=== PATIENT | female | born 1995 | race Caucasian/White ===

== ENCOUNTER 2018-06-19 20:32 | Day surgery (SDC) | payer OTHER, MEDICAID ==
[~2018-06-19] VITALS: Ht 160 cm; Wt 51.0 kg
[~2018-06-19 20:32] MED LIST: CYCL10TA9 PO; FAMO20TA5 PO; NAPR-243 PO; ONDA8TAB13 PO; POLY119P PO; SCR1T PO
--- OUTSIDE RECORDS SUMMARY | 2018-06-19 20:51 | XMS REPORT ---
Author Author GABRIELA MARTINEZ Organization [facility] Address [address] [place] [address] Care Team Providers Care Associate Professor Of Literacy Name Role Phone GABRIELA MARTINEZ Unavailable PROBLEMS Type Condition ICD9-CM Code [id number] Code Onset Dates Condition Status SNOMED Code Problem Depressive disorder F32.9 Active 91348117 Problem Panic disorder [episodic paroxysmal anxiety] F41.0 Active [id number] ALLERGIES No Information ENCOUNTERS Encounter Location Date Diagnosis [facility] [id number] [address] Jun, [facility] [id number] [place] [phone] May, Depressive disorder F32.9 [facility] [address] [address] Apr, Depressive disorder F32.9 and Panic disorder [episodic paroxysmal anxiety] F41.0 IMMUNIZATIONS No Known Immunizations SOCIAL HISTORY Never Assessed REASON FOR VISIT Refill Request PLAN OF CARE VITAL SIGNS MEDICATIONS Medication Instructions Dosage Frequency Start Date End Date Duration Status Sertraline HCl 100 mg Orally at bedtime 1 tablet 90 days Active RESULTS No Results PROCEDURES No Known procedures INSTRUCTIONS MEDICATIONS ADMINISTERED No Known Medications MEDICAL (GENERAL) HISTORY Type Description Date Medical History panic attacks Medical History anxiety Medical History depression Medical History alcohol syndrome Surgical History spinal surgery for scoliosis 2009 Surgical History tonsillectomy Surgical History eye surgery ( bilaterally) Hospitalization History surgery
--- OUTSIDE RECORDS SUMMARY | 2018-06-19 20:51 | XMS REPORT ---
Author Author GABRIELA MARTINEZ Organization [facility] Address [address] [place] [address] Care Team Providers Care Closed Circuit Screen Watcher Name Role Phone GABRIELA MARTINEZ Unavailable PROBLEMS Type Condition ICD9-CM Code [id number] Code Onset Dates Condition Status SNOMED Code Problem Depressive disorder F32.9 Active 53120415 Problem Panic disorder [episodic paroxysmal anxiety] F41.0 Active [id number] ALLERGIES No Known Allergies ENCOUNTERS Encounter Location Date Diagnosis [facility] [id number] [address] Jun, [facility] [id number] [place] [phone] Apr, Depressive disorder F32.9 and Panic disorder [episodic paroxysmal anxiety] F41.0 IMMUNIZATIONS No Known Immunizations SOCIAL HISTORY Never Assessed REASON FOR VISIT Establish Care/ discuss ivana Cho MA PLAN OF CARE Activity Details Follow Up 4 Weeks Reason:depression VITAL SIGNS Height 63.5 in 2018-05-11 Weight 107.7 lbs 2018-05-11 Temperature 99.1 degrees Fahrenheit 2018-05-11 Heart Rate 74 bpm 2018-05-11 Respiratory Rate 18 2018-05-11 BMI 18.78 kg/m2 2018-05-11 Blood pressure systolic 96 mmHg 2018-05-11 Blood pressure diastolic 58 mmHg 2018-05-11 MEDICATIONS Medication Instructions Dosage Frequency Start Date End Date Duration Status Sertraline HCl 100 mg Orally at bedtime 1 tablet 30 days Active HydrOXYzine HCl 25 MG Orally every 8 hrs 1 tablet as needed 8h Apr, 30 day(s) Active RESULTS No Results PROCEDURES No Known procedures INSTRUCTIONS MEDICATIONS ADMINISTERED No Known Medications MEDICAL (GENERAL) HISTORY Type Description Date Medical History panic attacks Medical History anxiety Medical History depression Medical History alcohol syndrome Surgical History spinal surgery for scoliosis 2009 Surgical History tonsillectomy Surgical History eye surgery ( bilaterally) Hospitalization History surgery
--- OUTSIDE RECORDS SUMMARY | 2018-06-19 20:51 | XMS REPORT | Continuity of Care Document ---
Author Author [facility] Organization [facility] Address Unknown Phone Unavailable Allergies Active Description Code Type Severity Reaction Onset Reported/Identified Relationship to Patient Clinical Status Yes No Known Drug Allergies [id number] Drug Allergy Unknown N/A 09/18/2014 Medications There is no data. Problems Date Dx Coded Attending Type Code Diagnosis Diagnosed By 09/18/2014 Ot 535.50 09/18/2014 Ot 564.00 09/18/2014 Ot 789.06 01/27/2015 BRIAN PARDO APRN Ot 724.5 01/27/2015 BRIAN PARDO APRN Ot 786.52 05/09/2015 Ot 737.30 Procedures There is no data. Results There is no data. Encounters ACCT No. Visit Date/Time Discharge Status Pt. Type Provider Facility Loc./Unit Complaint [id number] 07/24/2015 10:22:00 07/24/2015 23:59:59 CLS Outpatient JACY YANG, EAMON Bermudez (DDU) [facility] RAD [id number] 01/27/2015 16:20:00 01/27/2015 17:40:00 DIS Emergency BRIAN PARDO APRN [facility] ER [id number] 10/27/2014 14:47:00 Document Registration [id number] 10/24/2008 09:51:00 Document Registration
[2018-06-19] MEDS ORDERED: SERT100T8 PO (20:53)
[2018-06-19] MEDS ORDERED: HYDR-700 PO (20:53)
[2018-06-19] MEDS ORDERED: morphine INJ 10 MG/ML 1ML (SYR OR VIAL) IVP ONE (21:00)
[2018-06-19] MEDS ORDERED: ONDANSETRON 4 MG/2 ML (SDV) Z0FRAN IVP ONE ×2 (21:00→21:45)
[2018-06-19] MEDS ORDERED: KETOROLAC 30 MG/ML VIAL IVP ONE (21:00)
--- NOTE | 2018-06-19 21:00 | ED Abdominal Pain ---
General Chief Complaint: Abdominal/GI Problems Stated Complaint: AB PAIN Source of Information: Patient Exam Limitations: No Limitations History of Present Illness Date Seen by Provider: Jun 19, 2018 Time Seen by Provider: 20:52 Initial Comments Patient presents to ER by private conveyance with her roommate and chief complaint that about 4:00 this morning she started her period and had some severe bilateral pelvic cramping. She does not stress her normal menstrual periods which usually go away within a few hours after some Midol. She took also 4 tablets of ibuprofen around noon and 3 tablets about for 5 hours after that. She only got minimal relief from her Profen. She's had no diarrhea or constipation. She says it hurt when she took the tampon out to change it. She's had no vaginal discharge. She is sexually active but she says last time she had sex was in November. She is a G0. No fevers chills but when the pain gets worse she does express some nausea without vomiting. She's had a bowel movement earlier today that was normal, formed. Last menstrual period was approximately a month before and she is typically regular with her periods. She's had no intra- abdominal surgeries. Allergies and Home Medications Allergies Coded Allergies: No Known Drug Allergies (Unverified , 09/18/14) Patient Home Medication List Home Medication List Reviewed: Yes Review of Systems Review of Systems Constitutional: No chills, No diaphoresis, No fever, No malaise EENTM: No Blurred Vision, No Double Vision Respiratory: Denies Cough, Denies Shortness of Air Cardiovascular: Denies Chest Pain, Denies Edema Gastrointestinal: See HPI; Denies Abdomen Distended; Abdominal Pain; Denies Constipated, Denies Diarrhea, Denies Nausea Genitourinary: See HPI; Denies Burning, Denies Discharge Musculoskeletal: No back pain, No joint pain Skin: No pruritus, No rash Past Oknatif-Trqnqz-Ztkfhl Hx Patient Social History Alcohol Use: Denies Use Recreational Drug Use: No Smoking Status: Never a Smoker Recent Foreign Travel: No Contact w/Someone Who Travel: No Seasonal Allergies Seasonal Allergies: No Past Medical History Eye Surgery Reproductive Disorders: No Female Reproductive Disorders: Denies Family Medical History No Pertinent Family Hx Physical Exam Vital Signs Vital Signs - First Documented 06/19/18 20:45 Temp 98.0 Pulse 115 Resp 18 B/P (MAP) 131/94 (106) Pulse Ox 100 O2 Delivery Room Air Capillary Refill : Height/Weight/BMI Height: 5'1" Weight: 90lbs. oz. 40.461953vt; BMI Method: General Appearance: WD/WN, mild distress HEENT: PERRL/EOMI, pharynx normal Neck: non-tender, normal inspection Respiratory: chest non-tender, lungs clear, normal breath sounds, no respiratory distress, no accessory muscle use Cardiovascular: normal peripheral pulses, regular rate, rhythm, no edema Peripheral Pulses: 2+ Dorsalis Pedis (R), 2+ Left Dors-Pedis (L) Gastrointestinal: normal bowel sounds (active bs), no organomegaly, guarding; No rebound; tenderness (mostly suprapubic but some tenderness bilateral lower abdomen to palpation.) Genital/Rectal: other (1 mm papule on the labium minora left side without erythema or induration. Menses present. Severe Tenderness on placement of the cotton tip swab on blind vaginal sweep.) Extremities: normal range of motion, non-tender, normal inspection, normal capillary refill Neurologic/Psychiatric: alert, oriented x 3 Skin: normal color, warm/dry Progress/Results/Core Measures Results/Orders Lab Results Laboratory Tests Test 06/19/18 20:50 06/19/18 21:00 Range/Units Urine Color RED H Urine Clarity BLOODY H Urine pH 5 5-9 Urine Specific [place] 1.020 1.016-1.022 Urine Protein 3+ H NEGATIVE Urine Glucose (UA) NEGATIVE NEGATIVE Urine Ketones 1+ H NEGATIVE Urine Nitrite NEGATIVE NEGATIVE Urine Bilirubin NEGATIVE NEGATIVE Urine Urobilinogen NORMAL NORMAL MG/DL Urine Leukocyte Esterase 3+ H NEGATIVE Urine RBC (Auto) 5+ H NEGATIVE Urine RBC TNTC H /HPF Urine WBC 5-10 H /HPF Urine Crystals NONE /LPF Urine Bacteria TRACE /HPF Urine Casts NONE /LPF Urine Mucus NEGATIVE /LPF Urine Culture Indicated YES Urine Test NEGATIVE NEGATIVE Urine Opiates Screen NEGATIVE NEGATIVE Urine Oxycodone Screen NEGATIVE NEGATIVE Urine Methadone Screen NEGATIVE NEGATIVE Urine Propoxyphene Screen NEGATIVE NEGATIVE Urine Barbiturates Screen NEGATIVE NEGATIVE Ur Tricyclic Antidepressants Screen NEGATIVE NEGATIVE Urine Phencyclidine Screen NEGATIVE NEGATIVE Urine Amphetamines Screen NEGATIVE NEGATIVE Urine Methamphetamines Screen NEGATIVE NEGATIVE Urine Benzodiazepines Screen NEGATIVE NEGATIVE Urine Cocaine Screen NEGATIVE NEGATIVE Urine Cannabinoids Screen NEGATIVE NEGATIVE White Blood Count 9.9 4.3-11.0 10^3/uL Red Blood Count 4.39 4.35-5.85 10^6/uL Hemoglobin 9.9 L 11.5-16.0 G/DL Hematocrit 33 L 35-52 % Mean Corpuscular Volume 75 L 80-99 FL Mean Corpuscular Hemoglobin 23 L 25-34 PG Mean Corpuscular Hemoglobin Concent 30 L 32-36 G/DL Red Cell Distribution Width 14.1 10.0-14.5 % Platelet Count 343 130-400 10^3/uL Mean Platelet Volume 11.7 H 7.4-10.4 FL Neutrophils (%) (Auto) 80 H 42-75 % Lymphocytes (%) (Auto) 11 L 12-44 % Monocytes (%) (Auto) 8 0-12 % Eosinophils (%) (Auto) 1 0-10 % Basophils (%) (Auto) 1 0-10 % Neutrophils # (Auto) 8.0 H 1.8-7.8 X 10^3 Lymphocytes # (Auto) 1.1 1.0-4.0 X 10^3 Monocytes # (Auto) 0.8 0.0-1.0 X 10^3 Eosinophils # (Auto) 0.1 0.0-0.3 10^3/uL Basophils # (Auto) 0.1 0.0-0.1 10^3/uL Sodium Level 140 135-145 MMOL/L Potassium Level 3.6 3.6-5.0 MMOL/L Chloride Level 104 98-107 MMOL/L Carbon Dioxide Level 22 21-32 MMOL/L Anion Gap 14 5-14 MMOL/L Blood Urea Nitrogen 11 7-18 MG/DL Creatinine 0.84 0.60-1.30 MG/DL Estimat Glomerular Filtration Rate > 60 BUN/Creatinine Ratio 13 Glucose Level 130 H 70-105 MG/DL Calcium Level 9.7 8.5-10.1 MG/DL Corrected Calcium 8.5-10.1 MG/DL Total Bilirubin 0.2 0.1-1.0 MG/DL Aspartate Amino Transf (AST/SGOT) 17 5-34 U/L Alanine Aminotransferase (ALT/SGPT) 14 0-55 U/L Alkaline Phosphatase 66 40-136 U/L C-Reactive Protein High Sensitivity 0.19 0.00-0.50 MG/DL Total Protein 7.8 6.4-8.2 GM/DL Albumin 4.9 H 3.2-4.5 GM/DL My Orders Orders - ZAKREYES Cbc With Automated Diff (06/19/18 20:51) Comprehensive Metabolic Panel (06/19/18 20:51) Hs C Reactive Protein (06/19/18 20:51) Drug Screen Stat (Urine) (06/19/18 20:51) Ua Culture If Indicated (06/19/18 20:51) Ketorolac Injection (Toradol Injection) (06/19/18 21:00) Ondansetron Injection (Zofran Injectio (06/19/18 21:00) Morphine Injection (Morphine Injection (06/19/18 21:00) Hcg,Qualitative Urine (06/19/18 21:01) Urine Culture (06/19/18 20:50) Ct Abdomen/Pelvis W (06/19/18 21:37) Fentanyl Injection (Sublimaze Injection (06/19/18 21:45) Ondansetron Injection (Zofran Injectio (06/19/18 21:45) Ceftriaxone For Iv Use (Rocephin For I (06/19/18 21:45) Promethazine Injection (Phenergan Injec (06/19/18 22:15) Iohexol Injection (Omnipaque 350 Mg/Ml 1 (06/19/18 23:00) Contrast Received (Contrast Received) (06/19/18 23:00) Ns (Ivpb) (Sodium Chloride 0.9%) (06/19/18 23:00) Wet Prep (06/19/18 23:30) Neisseria Gonorrhea Swab (06/19/18 23:30) Chlam Dna Probe (06/19/18 23:30) Medications Given in ED Current Medications Medications Dose Ordered Sig/Kassandra Route Start Time Stop Time Status Last Admin Dose Admin Ceftriaxone Sodium 1000 mg/ Sodium Chloride 50 ml @ 100 mls/hr ONCE ONCE IV 06/19/18 21:45 06/19/18 22:14 DC 06/19/18 21:49 100 MLS/HR Fentanyl Citrate 50 mcg ONCE ONCE IVP 06/19/18 21:45 12 21:46 DC 06/19/18 21:46 50 MCG Iohexol 100 ml ONCE ONCE IV 06/19/18 23:00 06/19/18 23:01 DC 06/19/18 22:59 100 ML Ketorolac Tromethamine 30 mg ONCE ONCE IVP 06/19/18 21:00 06/19/18 21:01 DC 06/19/18 21:02 30 MG Ondansetron HCl 4 mg ONCE ONCE IVP 06/19/18 21:00 06/19/18 21:01 DC 06/19/18 21:02 4 MG Ondansetron HCl 4 mg ONCE ONCE IVP 06/19/18 21:45 06/19/18 21:46 DC 06/19/18 21:46 4 MG Promethazine HCl 25 mg ONCE ONCE IVP 06/19/18 22:15 06/19/18 22:16 DC 06/19/18 22:18 25 MG Sodium Chloride 250 ml ONCE ONCE IV 06/19/18 23:00 06/19/18 23:01 DC 06/19/18 22:59 80 ML Vital Signs/I&O 06/19/18 20:45 Temp 98.0 Pulse 115 Resp 18 B/P (MAP) 131/94 (106) Pulse Ox 100 O2 Delivery Room Air 06/20/18 00:00 Intake Total 50 ml Balance 50 ml Progress Progress Note #1: Time: 20:54 Progress Note Urine , urinalysis, pain is in the suprapubic region so a versus UTI versus much less likely bowel infection. If the urinalysis is unremarkable then we'll do a pelvic examination and obtain a wet prep, GC and chlamydia. If her pain is still significant or she has other symptoms that are not relieved with the Toradol and Zofran and we can consider a CT of the pelvis. Progress Note #2: Time: 21:38 Progress Note The patient's pain was not improved nor is her nausea is gone. We'll give her another dose of Zofran and some fentanyl and obtain a CT of her abdomen and pelvis with IV contrast. She was not aware that she has any anemia but we have encouraged to follow up with her primary care at [facility] to have this worked up. We'll there are 5-10 white count on the urinalysis she also has too numerous to count red blood cells results difficult to see if this represents an infection or not. She denies any discharge or malodor previous to this making PID much less likely given her history. After receiving the fentanyl she had some minor itching all over her body so we gave her some Phenergan to help with her residual nausea as well as her itching. This improved her itching significantly. Progress Note #3: Time: 23:54 Progress Note Added doxycycline IV to cover for pelvic inflammatory disease and obtained a wet prep as well as a GC chlamydia probe. dialysis tech accompanied the provider for the sensitive exam. Permission was obtained prior to performing exam. Wet prep demonstrates rare white blood cells with everything else being negative. Diagnostic Imaging Diagonstic Imaging: CT (with contrast) Plain Films/CT/US/NM/MRI: abdomen, pelvis Comments Quite a bit of inflammation seen in the pelvis with the cecum pushed down into the pelvis. The appendix is not visible. Differential includes appendicitis versus PID. Marked inflammatory process in the deep pelvis surrounding cecum which is located adjacent to the right adnexa. The appendix cannot be visualized. Differentials include ruptured appendicitis or possibly PID. Reviewed: Reviewed [place] Hawk Study, Reviewed by Me, Discussed w/ Radiologist ([id number]; Dr Hughes) Departure Communication (Admissions) Time/Spoke to Admitting Phy: 23:35 Discussed the case lab imaging findings and he wants to observe her on antibiotics Zosyn would be fine nothing by mouth and he'll see how she is doing in the morning. If she has not improved then he'll do a diagnostic laparoscopy. Impression Primary Impression: PID (acute pelvic inflammatory disease) Additional Impressions: Microcytic anemia Appendicitis Qualified Codes: K37 - Unspecified appendicitis Disposition: ADMITTED INPATIENT Condition: Stable Admissions Decision to Admit Reason: Admit from ER (General) Decision to Admit/Date: Jun 19, 2018 Time/Decision to Admit Time: 23:42 Departure-Patient Inst. Referrals: [facility]/YU DELATORRE MD (PCP/Family) Primary Care Physician Copy Copies To 1: VANNESSA CARDONA TITUS J Jun 19, 2018 21:00
[2018-06-19 21:01] LABS: BILIRUBIN,URINE NEGATIVE (NEGATIVE); CLARITY,URINE BLOODY; COLOR,URINE RED; GLUCOSE, URINE (UA) NEGATIVE (NEGATIVE); KETONES,URINE 1+ (NEGATIVE); LEUKOCYTE ESTERASE ,URINE 3+ (NEGATIVE); NITRITE,URINE NEGATIVE (NEGATIVE); PH,URINE 5 (5-9); PROTEIN,URINE 3+ (NEGATIVE); UROBILINOGEN,URINE NORMAL (NORMAL)
[2018-06-19 21:08] LABS: BACTERIA,URINE TRACE /HPF; RBC,URINE TNTC /HPF
[2018-06-19 21:12] LABS: AMPHETAMINE SCREEN, URINE NEGATIVE (NEGATIVE); BARBITURATE SCREEN URINE NEGATIVE (NEGATIVE); BENZODIAZEPINES SCREEN URINE NEGATIVE (NEGATIVE); CANNABINOID SCREEN, URINE NEGATIVE (NEGATIVE); COCAINE SCREEN URINE NEGATIVE (NEGATIVE); METHADONE STAT NEGATIVE (NEGATIVE); METHAMPHETAMINE SCREEN URINE S NEGATIVE (NEGATIVE); OPIATE SCREEN URINE NEGATIVE (NEGATIVE); OXYCODONE STAT NEGATIVE (NEGATIVE); PROPOXYPHENE STAT NEGATIVE (NEGATIVE); TRICYCLIC ANTIDEPRESSANTS SCRE NEGATIVE (NEGATIVE)
[2018-06-19 21:16] LABS: BASOPHILS # (AUTO) 0.1 10^3/uL (0.0-0.1); BASOPHILS % (AUTO) 1 % (0-10); EOSINOPHILS # (AUTO) 0.1 10^3/uL (0.0-0.3); EOSINOPHILS % (AUTO) 1 % (0-10); HEMATOCRIT 33 % (35-52); HEMOGLOBIN 9.9 G/DL (11.5-16.0); LYMPHOCYTES # (AUTO) 1.1 X 10^3 (1.0-4.0); LYMPHOCYTES % (AUTO) 11 % (12-44); MEAN CORPUSCULAR HEMOGLOBIN 23 PG (25-34); MEAN CORPUSCULAR HGB CONC 30 G/DL (32-36); MEAN CORPUSCULAR VOLUME 75 FL (80-99); MEAN PLATELET VOLUME 11.7 FL (7.4-10.4); MONOCYTES # (AUTO) 0.8 X 10^3 (0.0-1.0); MONOCYTES % (AUTO) 8 % (0-12); NEUTROPHILS % (AUTO) 80 % (42-75); PLATELET COUNT 343 10^3/uL (130-400); RED BLOOD COUNT 4.39 10^6/uL (4.35-5.85); RED CELL DISTRIBUTION WIDTH 14.1 % (10.0-14.5); WHITE BLOOD COUNT 9.9 10^3/uL (4.3-11.0)
[2018-06-19 21:29] LABS: ALANINE AMINOTRANSFERASE 14 U/L (0-55); ALBUMIN 4.9 GM/DL (3.2-4.5); BILIRUBIN,TOTAL 0.2 MG/DL (0.1-1.0); BUN/CREATININE RATIO 13; CALCIUM 9.7 MG/DL (8.5-10.1); CARBON DIOXIDE 22 MMOL/L (21-32); CHLORIDE 104 MMOL/L (98-107); CREATININE SERUM 0.84 MG/DL (0.60-1.30); GFR ESTIMATED > 60; GLUCOSE 130 MG/DL (70-105); POTASSIUM 3.6 MMOL/L (3.6-5.0); SODIUM 140 MMOL/L (135-145); TOTAL PROTEIN 7.8 GM/DL (6.4-8.2)
[2018-06-19 21:45] LABS: ALKALINE PHOSPHATASE 66 U/L (40-136)
[2018-06-19] MEDS ORDERED: fentaNYL INJECTION 100 MCG/2 ML AMP IVP ONE (21:45)
[2018-06-19] MEDS ORDERED: cefTRIAXone FOR IV USE 1,000 MG in NS (IVPB) 50 ML IV ONE (21:45)
[2018-06-19] MEDS ORDERED: PROMETHAZINE INJ 25 MG/ML (PHENERGAN) AMP IVP ONE (22:15)
[2018-06-19] MEDS ORDERED: RECEIVED CONTRAST (Hold Metformin) IV SCH (23:00)
[2018-06-19] MEDS ORDERED: NS 250 ML (IVPB) BAG IV ONE (23:00)
[2018-06-19] MEDS ORDERED: IOHEXOL 350 MG/ML 100 ML (OMNIPAQUE 350) VIAL IV ONE (23:00)
--- OUTSIDE RECORDS SUMMARY | 2018-06-19 23:53 | XMS REPORT | Continuity of Care Document ---
Author Author [facility] Organization [facility] Address Unknown Phone Unavailable Allergies Active Description Code Type Severity Reaction Onset Reported/Identified Relationship to Patient Clinical Status Yes No Known Drug Allergies [id number] Drug Allergy Unknown N/A 09/18/2014 Medications There is no data. Problems Date Dx Coded Attending Type Code Diagnosis Diagnosed By 09/18/2014 Ot 535.50 09/18/2014 Ot 564.00 09/18/2014 Ot 789.06 01/27/2015 BRIAN PARDO APRN Ot 724.5 01/27/2015 BRIAN PARDO APRN Ot 786.52 05/09/2015 Ot 737.30 Procedures There is no data. Results Test Result Range Complete urinalysis with reflex to culture - 06/19/18 20:50 Urine color determination RED NRG Urine clarity determination BLOODY NRG Urine pH measurement by test strip 5 5-9 Specific gravity of urine by test strip 1.020 1.016- 1.022 Urine protein assay by test strip, semi-quantitative 3+ NEGATIVE Urine glucose detection by automated test strip NEGATIVE NEGATIVE Erythrocytes detection in urine sediment by light microscopy 5+ NEGATIVE Urine ketones detection by automated test strip 1+ NEGATIVE Urine nitrite detection by test strip NEGATIVE NEGATIVE Urine total bilirubin detection by test strip NEGATIVE NEGATIVE Urine urobilinogen measurement by automated test strip (mass/volume) NORMAL NORMAL Urine leukocyte esterase detection by dipstick 3+ NEGATIVE Automated urine sediment erythrocyte count by microscopy (number/high power field) TNTC NRG Automated urine sediment leukocyte count by microscopy (number/high power field ) [HPF] NRG Bacteria detection in urine sediment by light microscopy TRACE NRG Crystals detection in urine sediment by light microscopy NONE NRG Casts detection in urine sediment by light microscopy NONE NRG Mucus detection in urine sediment by light microscopy NEGATIVE NRG Complete urinalysis with reflex to culture YES NRG Urine drug screening test - 06/19/18 20:50 Urine phencyclidine detection by screening method NEGATIVE NEGATIVE Urine benzodiazepines detection by screening method NEGATIVE NEGATIVE Urine cocaine detection NEGATIVE NEGATIVE Urine amphetamines detection by screening method NEGATIVE NEGATIVE Urine methamphetamine detection by screening method NEGATIVE NEGATIVE Urine cannabinoids detection by screening method NEGATIVE NEGATIVE Urine opiates detection by screening method NEGATIVE NEGATIVE Urine barbiturates detection NEGATIVE NEGATIVE Screening urine tricyclic antidepressants detection NEGATIVE NEGATIVE Urine methadone detection by screening method NEGATIVE NEGATIVE Urine oxycodone detection NEGATIVE NEGATIVE Urine propoxyphene detection NEGATIVE NEGATIVE Urine beta human chorionic gonadotropin (hCG) measurement - 06/19/18 20:50 Urine beta human chorionic gonadotropin (hCG) measurement NEGATIVE NEGATIVE Complete blood count (CBC) with automated white blood cell (WBC) differential - 06/19/18 21:00 Blood leukocytes automated count (number/volume) 9.9 10*3/uL 4.3-11.0 Blood erythrocytes automated count (number/volume) 4.39 10*6/uL 4.35-5.85 Venous blood hemoglobin measurement (mass/volume) 9.9 g/dL 11.5-16.0 Blood hematocrit (volume fraction) 33 % 35-52 Automated erythrocyte mean corpuscular volume 75 [foz_us] 80-99 Automated erythrocyte mean corpuscular hemoglobin (mass per erythrocyte) 23 pg 25-34 Automated erythrocyte mean corpuscular hemoglobin concentration measurement ( mass/volume) 30 g/dL 32-36 Automated erythrocyte distribution width ratio 14.1 % 10.0-14.5 Automated blood platelet count (count/volume) 343 10*3/uL 130-400 Automated blood platelet mean volume measurement 11.7 [foz_us] 7.4-10.4 Automated blood neutrophils/100 leukocytes 80 % 42-75 Automated blood lymphocytes/100 leukocytes 11 % 12-44 Blood monocytes/100 leukocytes 8 % 0-12 Automated blood eosinophils/100 leukocytes 1 % 0-10 Automated blood basophils/100 leukocytes 1 % 0-10 Blood neutrophils automated count (number/volume) 8.0 10*3 1.8-7.8 Blood lymphocytes automated count (number/volume) 1.1 10*3 1.0-4.0 Blood monocytes automated count (number/volume) 0.8 10*3 0.0-1.0 Automated eosinophil count 0.1 10*3/uL 0.0-0.3 Automated blood basophil count (count/volume) 0.1 10*3/uL 0.0-0.1 Comprehensive metabolic panel - 06/19/18 21:00 Serum or plasma sodium measurement (moles/volume) 140 mmol/L 135-145 Serum or plasma potassium measurement (moles/volume) 3.6 mmol/L 3.6-5.0 Serum or plasma chloride measurement (moles/volume) 104 mmol/L 98-107 Carbon dioxide 22 mmol/L 21-32 Serum or plasma anion gap determination (moles/volume) 14 mmol/L 5-14 Serum or plasma urea nitrogen measurement (mass/volume) 11 mg/dL 7-18 Serum or plasma creatinine measurement (mass/volume) 0.84 mg/dL 0.60-1.30 Serum or plasma urea nitrogen/creatinine mass ratio 13 NRG Serum or plasma creatinine measurement with calculation of estimated glomerular filtration rate > NRG Serum or plasma glucose measurement (mass/volume) 130 mg/dL 70-105 Serum or plasma calcium measurement (mass/volume) 9.7 mg/dL 8.5-10.1 Serum or plasma total bilirubin measurement (mass/volume) 0.2 mg/dL 0.1-1.0 Serum or plasma alkaline phosphatase measurement (enzymatic activity/volume) 66 U/L 40-136 Serum or plasma aspartate aminotransferase measurement (enzymatic activity/ volume) 17 U/L 5-34 Serum or plasma alanine aminotransferase measurement (enzymatic activity/volume ) 14 U/L 0-55 Serum or plasma protein measurement (mass/volume) 7.8 g/dL 6.4-8.2 Serum or plasma albumin measurement (mass/volume) 4.9 g/dL 3.2-4.5 Serum or plasma C reactive protein measurement (mass/volume) - 06/19/18 21:00 Serum or plasma C reactive protein measurement (mass/volume) 0.19 mg /dL 0.00-0.50 Encounters ACCT No. Visit Date/Time Discharge Status Pt. Type Provider Facility Loc./Unit Complaint [id number] 07/24/2015 10:22:00 07/24/2015 23:59:59 CLS Outpatient EAMON LOUIE MD (DDU) [facility] RAD [id number] 01/27/2015 16:20:00 01/27/2015 17:40:00 DIS Emergency BRIAN PARDO APRN [facility] ER [id number] 06/19/2018 21:09:00 Document Registration [id number] 10/27/2014 14:47:00 Document Registration [id number] 10/24/2008 09:51:00 Document Registration
--- NOTE | 2018-06-20 00:14 | Progress Note-Pre Operative ---
Pre-Operative Progress Note H&P Reviewed The H&P was reviewed, patient examined and no changes noted. Date Seen by Provider: Jun 20, 2018 Time Seen by Provider: 00:12 Date H&P Reviewed: Jun 20, 2018 Time H&P Reviewed: 00:12 Pre-Operative Diagnosis: pelvic abscess XIN PLAZA MD Jun 20, 2018 00:13
[2018-06-20 00:20] VITALS: BP 125/84
[2018-06-20] MEDS ORDERED: LACTATED RINGERS 1,000 ML IV ONE (00:29)
[2018-06-20] MEDS ORDERED: PIPERACILLIN/TAZO 4.5 GM/NS 100 ML IV ONE ×2 (00:45)
[2018-06-20] MEDS ORDERED: CATHETER FLUSH 10 ML SYR IV PRN (00:45)
--- NOTE | 2018-06-20 00:57 | HISTORY AND PHYSICAL ---
DATE OF SERVICE: ATTENDING PRIMARY CARE PHYSICIAN: Shonda Fry MD HISTORY OF PRESENT ILLNESS: The patient is a 22-year-old female who presented to the Emergency Department with one day onset of lower quadrant abdominal pain. She reports that this came relatively suddenly and it persistent. The pain is described as sharp and crampy in nature. She is on her menstrual cycle right now and she states that she has normal cycles and does not normally have any pain during this process. She states that she is currently not sexually active and her last partner was her ex-boyfriend, which was in 11/2017. A CT scan was performed, which did show fluid in the pelvis with slight superior displacement of the cecum and the appendix not well visualized. She does have a urinary tract infection with leukocyte esterase, which is 3 positive. She reports that she has not had these type of symptoms before in the past. She also does not report ever having a sexually transmitted disease. PAST MEDICAL HISTORY: Scoliosis. PAST SURGICAL HISTORY: Aleman Cristhian placement with revisions. ALLERGIES: No known drug allergies. MEDICATIONS: Hydroxyzine 25 mg daily, sertraline 100 mg daily. SOCIAL HISTORY: Negative smoke, negative alcohol. FAMILY HISTORY: Noncontributory. VITAL SIGNS: Temperature 97.8, blood pressure 132/97, pulse 89, respirations 18, pulse ox 98% on room air. REVIEW OF SYSTEMS: A well-nourished female currently guarded secondary to the abdominal pain. She is not experiencing any shortness of breath or difficulty breathing. No chest pain, palpitations, diaphoresis. Intermittent episodes of nausea, no vomiting. She has not had a bowel movement recently. No red blood per rectum, no dark tarry stools. No fever, chills, no recent inadvertent weight loss. All other review of systems negative. PHYSICAL EXAMINATION: CHEST: Clear. Good breath sounds bilaterally. HEART: Regular, no murmurs. EXTREMITIES: No lower extremity edema, negative Homans sign. HEENT: No scleral icterus. NECK: No cervical lymphadenopathy. ABDOMEN: Soft, nondistended. There is pain in the lower abdominal quadrants with right greater than left. There is voluntary guarding, no rebound. SKIN: Warm and dry. LABORATORY DATA: WBC 9.9, hemoglobin 9.9, hematocrit 33, platelets 343. ASSESSMENT AND PLAN: A 22-year-old female with lower quadrant abdominal pain with a fluid collection consistent with a possible abscess with an appendix not well visualized. We will admit her and reevaluate her symptoms and if she continues to have pain, we will proceed with a diagnostic laparoscopy and drainage of any abscess if identified as well as appendectomy. If intraoperatively pelvic inflammatory disease is identified, we will proceed with the adequate antibiotic regimen as well as appendectomy if minimal inflammation is identified at the base of the cecum. Job ID: [id number] DocumentID: [id number] Dictated Date: 06/20/2018 00:26:45 Building Construction Estimator Date: 06/20/2018 00:56:01 Dictated By: XIN PLAZA MD [facility]
[2018-06-20] MEDS: LACTATED RINGERS 1,000 ML IV SCH ×3 (01:09→20:51)
[2018-06-20] MEDS: fentaNYL INJECTION 100 MCG/2 ML AMP IV PRN ×4 (01:22→23:13)
[2018-06-20] MEDS: DOXYCYCLINE INJECTION 100 MG in NS (IVPB) 100 ML IV SCH ×2 (01:49→13:53)
[2018-06-20 04:30] VITALS: BP 127/89
[2018-06-20 04:40] LABS: BASOPHILS % (AUTO) 0 % (0-10); EOSINOPHILS # (AUTO) 0.1 10^3/uL (0.0-0.3); EOSINOPHILS % (AUTO) 1 % (0-10); HEMATOCRIT 33 % (35-52); HEMOGLOBIN 9.7 G/DL (11.5-16.0); LYMPHOCYTES # (AUTO) 1.9 X 10^3 (1.0-4.0); LYMPHOCYTES % (AUTO) 21 % (12-44); MEAN CORPUSCULAR HEMOGLOBIN 22 PG (25-34); MEAN CORPUSCULAR HGB CONC 30 G/DL (32-36); MEAN CORPUSCULAR VOLUME 75 FL (80-99); MEAN PLATELET VOLUME 12.4 FL (7.4-10.4); MONOCYTES # (AUTO) 0.9 X 10^3 (0.0-1.0); MONOCYTES % (AUTO) 10 % (0-12); NEUTROPHILS # (AUTO) 6.2 X 10^3 (1.8-7.8); NEUTROPHILS % (AUTO) 68 % (42-75); PLATELET COUNT 314 10^3/uL (130-400); RED BLOOD COUNT 4.34 10^6/uL (4.35-5.85); RED CELL DISTRIBUTION WIDTH 13.9 % (10.0-14.5); WHITE BLOOD COUNT 9.1 10^3/uL (4.3-11.0)
[2018-06-20 04:59] LABS: BUN/CREATININE RATIO 12; CALCIUM 9.5 MG/DL (8.5-10.1); CARBON DIOXIDE 23 MMOL/L (21-32); CHLORIDE 105 MMOL/L (98-107); CREATININE SERUM 0.78 MG/DL (0.60-1.30); GFR ESTIMATED > 60; GLUCOSE 94 MG/DL (70-105); POTASSIUM 3.7 MMOL/L (3.6-5.0); SODIUM 140 MMOL/L (135-145)
[2018-06-20] MEDS: PIPERACILLIN/TAZO 4.5 GM/NS 100 ML IV SCH ×6 (05:55→20:57)
[2018-06-20] MEDS: CATHETER FLUSH 10 ML SYR IV SCH ×3 (05:56→20:52)
--- NOTE | 2018-06-20 06:44 | Diagnostic Imaging Report ---
PROCEDURE: CT abdomen and pelvis with contrast. TECHNIQUE: Multiple contiguous axial images were obtained through the abdomen and pelvis after administration of intravenous contrast. INDICATION: Abdominal and pelvic pain. Comparison made with prior examination from 09/18/2014. FINDINGS: The heart size is normal. The lung bases are clear. The liver is normal in size without focal lesions. Gallbladder is contracted. There is no biliary dilatation. Spleen is normal. The pancreas and adrenal glands are unremarkable. Kidneys are normal in appearance. Aorta is nonaneurysmal. Bowel gas pattern is nonspecific. There are marked inflammatory changes surrounding the cecum which is located deep in the right hemipelvis. The appendix is obscured. The fluid extends to the surrounding uterus and bladder as well as within the cul-de-sac. No discrete fluid collections appreciated to suggest abscess. Bladder is otherwise unremarkable. Osseous structures are unremarkable. IMPRESSION: Marked inflammatory process in the pelvis predominantly surrounding the cecum which is located deep within the right hemipelvis in the right adnexal region. This may reflect appendicitis although a tubo-ovarian abscess and/or PID could also have a similar appearance. Recommend clinical correlation. Dictated by: Dictated on workstation # [id number]
[2018-06-20] MEDS ORDERED: FLU QUADRIvalent (5+ YOA) 2018-2019 (AFLURIA) 0.5 ML IM ONE ×2 (07:00→21:36)
[2018-06-20 08:17] VITALS: BP 115/75
[2018-06-20] MEDS ORDERED: fentaNYL INJECTION 100 MCG/2 ML AMP ONE (09:26)
[2018-06-20] MEDS ORDERED: DEXAMETHASONE 10 MG/ML (DECADRON) 1 ML VIAL ONE (09:26)
[2018-06-20] MEDS ORDERED: ROCURONIUM 10 MG/ML 5 ML SYRINGE IV ONE (09:26)
[2018-06-20] MEDS ORDERED: ONDANSETRON 4 MG/2 ML (SDV) Z0FRAN ONE (09:26)
[2018-06-20] MEDS ORDERED: SUCCINYLCHOLINE INJ 100 MG/5 ML SYR ONE (09:26)
[2018-06-20] MEDS ORDERED: LIDOCAINE PF 2% 5 ML (XYLOCAINE) VIAL ONE (09:26)
[2018-06-20] MEDS ORDERED: NEOSTIGMINE 1 MG/ML 5 ML SYRINGE ONE (09:26)
[2018-06-20] MEDS ORDERED: GLYCOPYRROLATE 0.2 MG/ML (ROBINUL) 2 ML VIAL ONE (09:26)
[2018-06-20] MEDS ORDERED: proPOfol 200 MG/20 ML (DIPRIVAN) VIAL IV ONE (09:26)
[2018-06-20] MEDS ORDERED: SEVOFLURANE (ULTANE) 15 ML INHAL SOLN ONE (09:26)
[2018-06-20] MEDS ORDERED: MIDAZOLAM 2 MG/2 ML (VERSED) VIAL ONE (09:27)
[2018-06-20] MEDS ORDERED: BUP/EPI 0.5% 1:200,000 (SENSORCAINE) 30 ML VIAL ONE (09:59)
--- NOTE | 2018-06-20 10:31 | Progress Note (SOAP) ---
Subjective Date Seen by a Provider: Jun 20, 2018 Time Seen by a Provider: 09:00 Subjective/Events-last exam feels much better this morning. no fever/chills. reviewed CT and appears more related to PID. Objective Exam Vital Signs Date Time Temp Pulse Resp B/P (MAP) Pulse Ox O2 Delivery O2 Flow Rate FiO2 06/20/18 08:17 97.8 85 16 115/75 (88) 100 Room Air 06/20/18 08:00 100 Room Air 06/20/18 04:30 100.0 89 16 127/89 (102) 100 Room Air 06/20/18 01:00 Room Air 06/20/18 00:20 97.8 86 16 125/84 (98) 99 Room Air 06/19/18 23:58 97.8 89 18 132/99 (110) 98 Room Air 06/19/18 20:45 98.0 115 18 131/94 (106) 100 Room Air I & O 06/20/18 07:00 Intake Total 50 ml Balance 50 ml Capillary Refill : Less Than 3 Seconds General Appearance: No Apparent Distress HEENT: PERRL/EOMI Neck: Full Range of Motion Respiratory: Chest Non Tender, Lungs Clear, Normal Breath Sounds Cardiovascular: Regular Rate, Rhythm Gastrointestinal: soft, tenderness Extremity: Normal Capillary Refill Neurologic/Psychiatric: Alert, Oriented x3 Skin: Normal Color Lymphatic: No Adenopathy Results Lab Laboratory Tests 06/19/18 20:50: Urine Color REDH, Urine Clarity BLOODYH, Urine pH 5, Urine Specific [place] 1.020, Urine Protein 3+H, Urine Glucose (UA) NEGATIVE, Urine Ketones 1+H, Urine Nitrite NEGATIVE, Urine Bilirubin NEGATIVE, Urine Urobilinogen NORMAL, Urine Leukocyte Esterase 3+H, Urine RBC (Auto) 5+H, Urine RBC TNTCH, Urine WBC 5-10H, Urine Crystals NONE, Urine Bacteria TRACE, Urine Casts NONE, Urine Mucus NEGATIVE, Urine Culture Indicated YES, Urine Test NEGATIVE, Urine Opiates Screen NEGATIVE, Urine Oxycodone Screen NEGATIVE, Urine Methadone Screen NEGATIVE, Urine Propoxyphene Screen NEGATIVE, Urine Barbiturates Screen NEGATIVE, Ur Tricyclic Antidepressants Screen NEGATIVE, Urine Phencyclidine Screen NEGATIVE, Urine Amphetamines Screen NEGATIVE, Urine Methamphetamines Screen NEGATIVE, Urine Benzodiazepines Screen NEGATIVE, Urine Cocaine Screen NEGATIVE, Urine Cannabinoids Screen NEGATIVE 06/19/18 21:00: White Blood Count 9.9, Red Blood Count 4.39, Hemoglobin 9.9L, Hematocrit 33L, Mean Corpuscular Volume 75L, Mean Corpuscular Hemoglobin 23L, Mean Corpuscular Hemoglobin Concent 30L, Red Cell Distribution Width 14.1, Platelet Count 343, Mean Platelet Volume 11.7H, Neutrophils (%) (Auto) 80H, Lymphocytes (%) (Auto) 11L, Monocytes (%) (Auto) 8, Eosinophils (%) (Auto) 1, Basophils (%) (Auto) 1, Neutrophils # (Auto) 8.0H, Lymphocytes # (Auto) 1.1, Monocytes # (Auto) 0.8, Eosinophils # (Auto) 0.1, Basophils # (Auto) 0.1, Sodium Level 140, Potassium Level 3.6, Chloride Level 104, Carbon Dioxide Level 22, Anion Gap 14, Blood Urea Nitrogen 11, Creatinine 0.84, Estimat Glomerular Filtration Rate > 60, BUN/ Creatinine Ratio 13, Glucose Level 130H, Calcium Level 9.7, Corrected Calcium , Total Bilirubin 0.2, Aspartate Amino Transf (AST/SGOT) 17, Alanine Aminotransferase (ALT/SGPT) 14, Alkaline Phosphatase 66, C-Reactive Protein High Sensitivity 0.19, Total Protein 7.8, Albumin 4.9H 06/19/18 23:52: 06/20/18 04:00: White Blood Count 9.1, Red Blood Count 4.34L, Hemoglobin 9.7L, Hematocrit 33L, Mean Corpuscular Volume 75L, Mean Corpuscular Hemoglobin 22L, Mean Corpuscular Hemoglobin Concent 30L, Red Cell Distribution Width 13.9, Platelet Count 314, Mean Platelet Volume 12.4H, Neutrophils (%) (Auto) 68, Lymphocytes (%) (Auto) 21 , Monocytes (%) (Auto) 10, Eosinophils (%) (Auto) 1, Basophils (%) (Auto) 0, Neutrophils # (Auto) 6.2, Lymphocytes # (Auto) 1.9, Monocytes # (Auto) 0.9, Eosinophils # (Auto) 0.1, Basophils # (Auto) 0.0, Sodium Level 140, Potassium Level 3.7, Chloride Level 105, Carbon Dioxide Level 23, Anion Gap 12, Blood Urea Nitrogen 9, Creatinine 0.78, Estimat Glomerular Filtration Rate > 60, BUN/ Creatinine Ratio 12, Glucose Level 94, Calcium Level 9.5 Microbiology 06/19/18 Wet Prep - Final, Complete Assessment/Plan Assessment/Plan Assess & Plan/Chief Complaint PID/abscess r/o appendicitis. consult RELATIONS MANAGER. continue abx. clear liquids for now. Clinical Quality Measures DVT/VTE Risk/Contraindication: RFS Level Per Nursing on Admit: 0=No Risk/No VTE PPX XIN PLAZA MD Jun 20, 2018 10:31
[2018-06-20] MEDS: KETOROLAC 30 MG/ML VIAL IV PRN ×2 (10:34→20:51)
[2018-06-20] MEDS ORDERED: HYDROmorphone 2 MG/ML VIAL (DILAUDID) ONE (10:58)
[2018-06-20] MEDS: ONDANSETRON 4 MG/2 ML (SDV) Z0FRAN IV PRN ×2 (11:36→20:51)
[2018-06-20] MEDS ORDERED: HYDROXYZINE HCL 25 MG PO PRN (12:00)
[2018-06-20 12:30] VITALS: BP 152/105
[2018-06-20 16:25] VITALS: BP 130/87
[2018-06-20 20:00] VITALS: BP 112/81
[2018-06-20] MEDS: SERTRALINE 100 MG (ZOLOFT) TAB PO SCH (20:52)
[2018-06-21] VITALS: BP 123/76
[2018-06-21] MEDS ORDERED: HYDROmorphone 2 MG/ML VIAL (DILAUDID) IV PRN (00:15)
[2018-06-21] MEDS: LACTATED RINGERS 1,000 ML IV SCH ×3 (00:36→21:15)
[2018-06-21] MEDS: DOXYCYCLINE INJECTION 100 MG in NS (IVPB) 100 ML IV SCH ×2 (00:45→13:19)
[2018-06-21 04:00] VITALS: BP 116/71
[2018-06-21] MEDS: CATHETER FLUSH 10 ML SYR IV SCH ×3 (05:03→21:11)
[2018-06-21] MEDS: PIPERACILLIN/TAZO 4.5 GM/NS 100 ML IV SCH ×6 (05:03→23:54)
[2018-06-21] MEDS: fentaNYL INJECTION 100 MCG/2 ML AMP IV PRN ×5 (05:03→18:17)
[2018-06-21 06:32] LABS: HEMOGLOBIN 7.7 G/DL (11.5-16.0); RED BLOOD COUNT 3.44 10^6/uL (4.35-5.85); RED CELL DISTRIBUTION WIDTH 14.2 % (10.0-14.5); WHITE BLOOD COUNT 4.6 10^3/uL (4.3-11.0)
[2018-06-21 06:41] LABS: BUN/CREATININE RATIO 13; CALCIUM 8.2 MG/DL (8.5-10.1); CARBON DIOXIDE 24 MMOL/L (21-32); CHLORIDE 110 MMOL/L (98-107); CREATININE SERUM 0.75 MG/DL (0.60-1.30); GFR ESTIMATED > 60; GLUCOSE 85 MG/DL (70-105); POTASSIUM 3.5 MMOL/L (3.6-5.0); SODIUM 141 MMOL/L (135-145)
[2018-06-21 08:00] VITALS: BP 139/96
[2018-06-21] MEDS: KETOROLAC 30 MG/ML VIAL IV PRN ×2 (11:50→21:12)
--- NOTE | 2018-06-21 11:52 | Diagnostic Imaging Report ---
EXAMINATION: Pelvic ultrasound. INDICATION: Pelvic pain. FINDINGS: There are no prior pelvic ultrasound examinations available for comparison. The CT abdomen/pelvis exam performed on 06/19/2018 indicated an inflammatory process involving the pelvis. It was not certain whether there was an element of appendicitis present or a tubo-ovarian abscess. On this study, the uterus is nongravid and not enlarged measuring 7.7 x 4.5 x 3.8 cm. The endometrial lining is not thickened measuring 5 mm. There is no focal mass involving the uterus to suggest a fibroid. Both ovaries are identified. There is good blood flow to each ovary and there is no sign of torsion. There are few subcentimeter follicles associated with each ovary. There is also a 1.1 x 1.0 x 1.3 cm complicated cyst associated with the left ovary. A small amount of nonspecific free fluid is noted. There is no solid mass or abscess visualized. IMPRESSION: There is a small slightly complicated cyst associated with the left ovary and there is a small amount of free fluid in the pelvis. There is no acute pelvic abnormality noted otherwise. In particular, there is no pelvic mass or abscess. Dictated by: Dictated on workstation # [id number]
[2018-06-21 12:00] VITALS: BP 121/76
[2018-06-21 16:00] VITALS: BP 124/87
--- NOTE | 2018-06-21 16:41 | Consultation ---
History of Present Illness History of Present Illness Patient Consulted On(ana/time) 06/21/18 16:34 Date Seen by Provider: Jun 21, 2018 Time Seen by Provider: 08:15 Reason for Visit: Acute pelvic pain. History of Present Illness This 22 yo female was admitted by Dr. Whitten due to pelvic pain, and questionable pelvic abcess/PID. Initially the patient reports acute onset of pelvic pain, she attempted to deal with this at home, but reports that the pain became too much and she went to the ER. Emergency ordered CT and consulted Dr. Whitten due to pain and lack of findings. Dr. Whitten started the patient on antibiotic regimen, and there was a slight improvement in her pain. When I saw the patient this morning i noted negative test, also negative GC testing was noted later in the day. The patient reports monogamy with her boyfriend, however, she relates this in front of her mother. She also reports never undergoing pelvic exam or pap in the past. She reports her menses are fairly regular and is coming off her period right now. Allergies and Home Medications Allergies Coded Allergies: No Known Drug Allergies (Unverified , 09/18/14) Home Medications Hydroxyzine HCl 25 Mg Tablet, 25 MG PO BID PRN for ANXIETY, (Reported) Sertraline HCl 100 Mg Tablet, 100 MG PO HS, (Reported) Patient Home Medication List Home Medication List Reviewed: Yes Past Rdjdttc-Mxrhrd-Roydxj Hx Patient Social History Alcohol Use: Denies Use Recreational Drug Use: No Smoking Status: Never a Smoker 2nd Hand Smoke Exposure: No Recent Foreign Travel: No Contact w/Someone Who Travel: No Recent Infectious Disease Expo: No Recent Hopitalizations: No Immunizations Up To Date Tetanus Booster (TDap): Unknown Seasonal Allergies Seasonal Allergies: No Past Medical History Surgeries: Yes (RODS PLACED IN BACK FROM SCOLOSIS, CORRECTIVE EYE SURGERY) Eye Surgery Respiratory: No Cardiac: No Neurological: No : No Last Menstrual Period: Jun 19, 2018 Reproductive Disorders: No Female Reproductive Disorders: Denies Genitourinary: No Gastrointestinal: No Musculoskeletal: No Scoliosis Endocrine: No HEENT: No Loss of Vision: Bilateral Cancer: No Psychosocial: No Anxiety, Depression Integumentary: No Blood Disorders: No Family Medical History No Pertinent Family Hx Review of Systems-General Constitutional: no symptoms reported EENTM: no symptoms reported Cardiovascular: no symptoms reported Genitourinary: no symptoms reported Musculoskeletal: no symptoms reported Skin: no symptoms reported Psychiatric/Neurological: No Symptoms Reported All Other Systems Reviewed Negative Unless Noted: Yes Physical Exam-General Problems Physical Exam Vital Signs Vital Signs - First Documented 06/19/18 20:45 Temp 98.0 Pulse 115 Resp 18 B/P (MAP) 131/94 (106) Pulse Ox 100 O2 Delivery Room Air Capillary Refill : Less Than 3 Seconds General Appearance: WD/WN, mild distress HEENT: PERRL/EOMI, normal ENT inspection Neck: supple Respiratory: no respiratory distress Cardiovascular: no edema Gastrointestinal: soft, other (mildly distended, no rebound tenderness, guarding or rigidity. Mild left hemiabdominal tenderness) Back: no CVA tenderness Extremities: normal range of motion Neurologic/Psychiatric: loss prevention guard II-XII nml as tested, alert, normal mood/affect, oriented x 3 Skin: normal color Assessment/Plan Assessment/Plan Admission Diagnosis/Plan Diagnosis: 22 yo female with acute onset pelvic pain P: I discussed with the patient follow up in my office for annual and pap cytology I also discussed with her results from US, unlikely ovarian or pelvic etiology based on imaging and clinical picture, as well as negative GC testing. Would consider continuing antibiotic course since improvement has been noted, would recommend if suspecting Java Portal Developer etiology 10 day total course of doxycline and flagyl. Contact me if any further concern Admission Status: Inpatient Order (span 2 midnights) Clinical Quality Measures DVT/VTE Risk/Contraindication: RFS Level Per Nursing on Admit: 0=No Risk/No VTE PPX CHITO DIANE DO Jun 21, 2018 16:41
--- NOTE | 2018-06-21 17:28 | Progress Note (SOAP) ---
Subjective Date Seen by a Provider: Jun 21, 2018 Time Seen by a Provider: 17:00 Subjective/Events-last exam doing ok. still has some pelvic pain however more on left side today. no nausea/ vomiting. no fever/chills. Objective Exam Vital Signs Date Time Temp Pulse Resp B/P (MAP) Pulse Ox O2 Delivery O2 Flow Rate FiO2 06/21/18 12:00 98.1 83 22 121/76 (91) 93 Room Air 06/21/18 08:00 98.2 87 20 139/96 (110) 99 Room Air 06/21/18 08:00 Room Air 06/21/18 04:00 97.8 70 20 116/71 (86) 99 Room Air 06/21/18 00:00 99.8 75 20 123/76 (92) 97 Room Air 06/20/18 20:00 Room Air 06/20/18 20:00 98.4 80 20 112/81 (91) 99 Room Air 06/20/18 17:25 99.5 I & O 06/21/18 07:00 Intake Total 2370 ml Balance 2370 ml Capillary Refill : Less Than 3 Seconds General Appearance: No Apparent Distress HEENT: PERRL/EOMI Neck: Full Range of Motion Respiratory: Chest Non Tender, Lungs Clear, Normal Breath Sounds Cardiovascular: Regular Rate, Rhythm Gastrointestinal: normal bowel sounds, soft, tenderness Extremity: Normal Capillary Refill Neurologic/Psychiatric: Alert, Oriented x3 Skin: Normal Color Lymphatic: No Adenopathy Results Lab Laboratory Tests 06/21/18 06:17: White Blood Count 4.6, Red Blood Count 3.44L, Hemoglobin 7.7#L, Hematocrit 26L, Mean Corpuscular Volume 77L, Mean Corpuscular Hemoglobin 22L, Mean Corpuscular Hemoglobin Concent 29L, Red Cell Distribution Width 14.2, Platelet Count 235, Mean Platelet Volume 12.0H, Sodium Level 141, Potassium Level 3.5L, Chloride Level 110H, Carbon Dioxide Level 24, Anion Gap 7, Blood Urea Nitrogen 10, Creatinine 0.75, Estimat Glomerular Filtration Rate > 60, BUN/Creatinine Ratio 13, Glucose Level 85, Calcium Level 8.2L Microbiology 06/19/18 Wet Prep - Final, Complete 06/19/18 Urine Culture - Final, Complete See Report 06/20/18 MRSA Screen - Final, Complete MRSA not isolated Assessment/Plan Assessment/Plan Assess & Plan/Chief Complaint PID/abscess r/o appendicitis. consult KEY BED INSTALLER. continue abx. clear liquids for now. repeat labs in am. if continues to have pain or worsening pain, may proceed with dx laparoscopy in tandem with KEY BED INSTALLER. Clinical Quality Measures DVT/VTE Risk/Contraindication: RFS Level Per Nursing on Admit: 0=No Risk/No VTE PPX XIN PLAZA MD Jun 21, 2018 17:28
[2018-06-21 20:45] VITALS: BP 128/83
[2018-06-21] MEDS: SERTRALINE 100 MG (ZOLOFT) TAB PO SCH (21:11)
[2018-06-22] VITALS: BP 121/74
[2018-06-22] MEDS: DOXYCYCLINE INJECTION 100 MG in NS (IVPB) 100 ML IV SCH ×2 (01:41→14:06)
[2018-06-22] MEDS: fentaNYL INJECTION 100 MCG/2 ML AMP IV PRN ×8 (01:55→23:00)
[2018-06-22] MEDS: ONDANSETRON 4 MG/2 ML (SDV) Z0FRAN IV PRN ×2 (01:58→06:10)
[2018-06-22 04:00] VITALS: BP 135/89
[2018-06-22] MEDS: LACTATED RINGERS 1,000 ML IV SCH ×4 (06:09→21:51)
[2018-06-22] MEDS: CATHETER FLUSH 10 ML SYR IV SCH ×3 (06:10→19:53)
[2018-06-22] MEDS: PIPERACILLIN/TAZO 4.5 GM/NS 100 ML IV SCH ×6 (07:33→23:08)
[2018-06-22 08:00] VITALS: BP 141/95
--- NOTE | 2018-06-22 08:26 | Progress Note-Standard ---
Standard Progress Note Progress Notes/Assess & Plan Date Seen by a Provider: Jun 22, 2018 Time Seen by a Provider: 08:20 Progress/Assessment & Plan Patient continues to have pelvic pain and discomfort this AM. Temp overnight went up to 100.2, and patient report having nausea overnight associated with spikes in the pain. Discussed with Dr. Whitten, and offered continued conservative management vs. diagnostic laparoscopy. Risk of this procedure vs waiting and managing conservatively discussed with the patient and her mother yesterday and reviewed again this morning with her. All questions answered will proceed when OR staff available. Vital Sign - Last 24 Hours 06/21/18 06/21/18 06/21/18 06/21/18 12:00 16:00 20:00 20:45 Temp 98.1 97.6 100.2 Pulse 83 87 94 Resp 22 16 20 B/P (MAP) 121/76 (91) 124/87 (99) 128/83 (98) Pulse Ox 93 93 99 O2 Delivery Room Air Room Air Room Air Room Air 06/22/18 06/22/18 00:00 04:00 Temp 100.2 100.0 Pulse 83 88 Resp 20 20 B/P (MAP) 121/74 (90) 135/89 (104) Pulse Ox 96 97 O2 Delivery Room Air Room Air Intake and Output 06/21/18 06/21/18 06/22/18 15:00 23:00 07:00 Intake Total 460 ml 120 ml 1000 ml Balance 460 ml 120 ml 1000 ml Abd: soft/ distended/ suprapubic tenderness now that radiates to the umbilicus. CHITO DIANE DO Jun 22, 2018 08:26
[2018-06-22 08:36] LABS: HEMOGLOBIN 8.3 G/DL (11.5-16.0); MEAN PLATELET VOLUME 11.9 FL (7.4-10.4); RED BLOOD COUNT 3.74 10^6/uL (4.35-5.85); RED CELL DISTRIBUTION WIDTH 14.1 % (10.0-14.5); WHITE BLOOD COUNT 5.3 10^3/uL (4.3-11.0)
[2018-06-22] MEDS ORDERED: fentaNYL INJECTION 100 MCG/2 ML AMP ONE (10:39)
[2018-06-22] MEDS ORDERED: MIDAZOLAM 2 MG/2 ML (VERSED) VIAL ONE (10:40)
[2018-06-22] MEDS ORDERED: BUP/EPI 0.5% 1:200,000 (SENSORCAINE) 30 ML VIAL ONE (10:54)
[2018-06-22] MEDS ORDERED: BUPIVACAINE 0.25% 30 ML (SENSORCAINE) VIAL ONE (11:04)
[2018-06-22] MEDS: LACTATED RINGERS 1,000 ML IV PRN ×2 (11:19→12:50)
[2018-06-22] MEDS ORDERED: proPOfol 200 MG/20 ML (DIPRIVAN) VIAL IV ONE (12:25)
[2018-06-22] MEDS ORDERED: ONDANSETRON 4 MG/2 ML (SDV) Z0FRAN ONE (12:25)
[2018-06-22] MEDS ORDERED: SEVOFLURANE (ULTANE) 15 ML INHAL SOLN ONE ×5 (12:25→12:46)
[2018-06-22] MEDS ORDERED: NEOSTIGMINE 1 MG/ML 5 ML SYRINGE ONE (12:25)
[2018-06-22] MEDS ORDERED: GLYCOPYRROLATE 0.2 MG/ML (ROBINUL) 2 ML VIAL ONE (12:25)
[2018-06-22] MEDS ORDERED: LIDOCAINE PF 2% 5 ML (XYLOCAINE) VIAL ONE (12:25)
--- NOTE | 2018-06-22 12:33 | Progress Note-Post Operative ---
Post-Operative Progess Note Surgeon (s)/[employer] Officer (s) Surgeon XIN PLAZA MD [employer] Officer: none Pre-Operative Diagnosis pelvic abscess Post-Operative Diagnosis ruptured hemorrhagic left ovarian cyst with mild periappendicitis. Procedure & Operative Findings Date of Procedure 06/22/18 Procedure Performed/Findings diagnostic laparoscopy, appendectomy. Anesthesia Type GET Estimated Blood Loss Estimated blood loss (mL): minimal Specimens/Packing Specimens Removed appendix XIN PLAZA MD Jun 22, 2018 12:33
[2018-06-22] MEDS ORDERED: ACHD5005 PO (12:35)
--- NOTE | 2018-06-22 12:37 | Discharge Inst-Surgical ---
D/C Lap Instructions-BOLA New, Converted, or Re-Newed RX: RX on Chart Follow Up Appt in 2 weeks Activity as tolerated No driving for 24 hours No driving while on pain medications Incentive Spirometry use every 2 hours while awake Regular Diet Symptoms to Report: Fever over 101 degree F, Nausea/Vomiting Infection Signs and Symptoms to report: Increased redness, Foul odor of wound, Increased drainage Bathing instructions: May shower Operative Area Clean/Dry; Keep incision clean/dry If any problems/questions: Contact your physician or go to Emergency Room XIN PLAZA MD Jun 22, 2018 12:36
[2018-06-22] MEDS ORDERED: LACTATED RINGERS 1,000 ML IV ONE (12:46)
[2018-06-22] MEDS ORDERED: ROCURONIUM 10 MG/ML 5 ML SYRINGE IV ONE (12:52)
[2018-06-22] MEDS ORDERED: morphine INJ 10 MG/ML 1ML (SYR OR VIAL) IVP ONE (13:00)
[2018-06-22] MEDS ORDERED: MEPERIDINE (DEMEROL) INJ 50 MG/ML IVP ONE (13:00)
[2018-06-22] MEDS ORDERED: ONDANSETRON 4 MG/2 ML (SDV) Z0FRAN IVP PRN (13:00)
[2018-06-22] MEDS ORDERED: fentaNYL INJECTION 100 MCG/2 ML AMP IVP ONE (13:00)
[2018-06-22 13:50] VITALS: BP 129/84
--- NOTE | 2018-06-22 14:47 | OPERATIVE REPORT ---
DATE OF SERVICE: 06/22/2018 ATTENDING PRIMARY CARE PHYSICIAN: Dr. Shonda Fry. PREOPERATIVE DIAGNOSIS: Persistent lower quadrant abdominal pain. POSTOPERATIVE DIAGNOSIS: Ruptured left hemorrhagic ovarian cyst with periappendicitis. PROCEDURE: Diagnostic laparoscopy, evacuation hemoperitoneum, laparoscopic appendectomy done in conjunction with Dr. Blair. SURGEON: Xin Plaza MD and Dr. Blair. ANESTHESIA: General endotracheal. ESTIMATED BLOOD LOSS: Minimal. FINDINGS: Ruptured left ovarian hemorrhagic cyst with hemoperitoneum in the pelvis, appendix appeared that was adjacent to the right ovary in the pelvis with signs of early periappendicitis. DISPOSITION: The patient tolerated the procedure well. INDICATIONS: The patient is a 22-year-old female who presented to the Emergency Department with a one-day onset of lower quadrant abdominal pain. She reports that this came on relatively suddenly and persisted. She describes the pain as sharp and crampy in nature. She is on her menstrual cycle right now and states that she normally has normal cycles. She reports that she is not sexually active with the last partner being her ex-boyfriend, which was 11/2017. A CT scan was performed, which did show fluid in the pelvis as well as slight superior displacement of the cecum and the appendix not well visualized. She did have a urinary tract infection with leukocyte esterase of 3 positive. She does not report ever having any sexually transmitted diseases. The patient was monitored and PATIENT SERVICES ASSISTANT consulted. She had normal white count; however, she did have a significant drop in hemoglobin of 2 grams. She continued to have pain in the pelvis and due to the continued pain, it was decided to proceed with a diagnostic laparoscopy done in conjunction with Dr. Blair. DESCRIPTION OF PROCEDURE: The patient was brought to the operating room. The uterine manipulator and pneumoperitoneum as well as port placement was done by Dr. Blair. A left hemorrhagic cyst was identified and the hematoma evacuated by him. We then proceeded to replace a 5 mm infraumbilical port to a 10 mm port. We placed a midabdominal left of midline, 5 mm port under direct visualization after the skin and peritoneal lining were anesthetized using 0.5% Marcaine with epinephrine and a transverse skin incision made using a 15 blade. The appendix was identified, which appeared normal. However, due to the hemoperitoneum and most likely would develop into a periappendicitis and was decided to proceed with appendectomy. The appendix was retracted towards the anterior abdominal wall. The mesoappendix and the base of the appendix at the cecum were easily taken with a 45 mm endoscopic stapler with a 2.5 mm thickness load. Good hemostasis was visualized. The appendix was removed through the 10 mm port site using an EndoCatch bag. The area was then copiously irrigated and suctioned out. The 10 mm port site fascia and peritoneum were then closed under direct visualization using a Armen-Moises device and 0 Vicryl suture. The fascia and peritoneum to the 10 mm port site was then closed under direct visualization using a Armen-Moises device and 0 Vicryl suture. The abdomen was desufflated and remaining ports removed. All skin incisions were closed using 4-0 Monocryl running subcuticular sutures. Wounds were then cleaned and covered with Dermabond. The patient tolerated the procedure well. We will admit her back to the floor and keep her overnight for adequate pain control and to monitor her hemoglobin and once she is tolerating diet, has good pain control with oral pain medication and is ambulating well, we will discharge her home. Job ID: [id number] DocumentID: [id number] Dictated Date: 06/22/2018 12:49:47 Latex Foam Worker Date: 06/22/2018 14:46:51 Dictated By: XIN PLAZA MD [facility]
[2018-06-22 16:10] VITALS: BP 130/86
--- NOTE | 2018-06-22 16:49 | OPERATIVE REPORT ---
DATE OF SERVICE: PREOPERATIVE DIAGNOSIS: A 22-year-old female with acute onset pelvic pain, nonresolving with conservative measures taken. POSTOPERATIVE DIAGNOSES: 1. A 22-year-old female with acute onset pelvic pain, nonresolving with conservative measures taken. 2. Hematoperitoneum of the pelvis. PROCEDURES: Laparoscopic evacuation of pelvic hematoperitoneum and an appendectomy performed by Dr. Whitten. SURGEON: Chito Diane DO COSURGEON: Ora Whitten MD ANESTHESIA: General endotracheal. ESTIMATED BLOOD LOSS: Minimal. URINE OUTPUT: 300 mL, clear at the end of procedure. FLUIDS: 1000 mL lactated Ringer's solution. FINDINGS: Approximately, 50 to 60 mL of blood in the pelvis. Otherwise, grossly normal appearing uterus, bilateral fallopian tubes and ovaries. INDICATION FOR PROCEDURE : This 22-year-old female was admitted by Dr. Whitten over the weekend with the finding of acute onset pelvic pain that started on Thursday. She was admitted early Thursday morning and admitted for observation. I was consulted later on Thursday due to the pelvic pain being isolated on CT exam to some inflammation of the cecum and some thickening of the bowel wall in the cecum. The appendix did not appear to be enlarged and there was no white count, so there was concern that this may be a gynecologic etiology. Upon evaluating the patient, I ordered a pelvic ultrasound, which really did not add anything to my findings as it appeared grossly normal on ultrasound. Gonorrhea and chlamydia testing also came back as negative. The patient had been started on Zosyn and doxycycline at admission and was on these for 3 days with no improvement in her symptoms. The patient was wishing to proceed with more aggressive measures as she continued to have pain. Risk of diagnostic laparoscopy was discussed with the patient in detail with her and her mother present. After all of her questions were answered, consent was obtained, the patient was taken to the operating room. OPERATIVE REPORT IN DETAIL: Once in the operating room, general anesthesia was found to be adequate. She was placed in dorsal lithotomy position, prepped and draped in normal sterile fashion. Funez catheter was placed using sterile technique. A weighted speculum was inserted in the patient's vagina. Right angle retractor was utilized. Cervix was grasped at 12 o'clock position using long Allis clamp. I then gently sound the uterine cavity, depth was found to be 7 cm. I then gently dilated the cervix using Hegar dilators to a maximum dilatation of approximately 3 to 4 mm, allowing me to place a Kronner uterine manipulator into the uterine cavity deploying the balloon. I then removed all other instruments from the patient's vagina and performed change gloves. I took my attention to the abdomen where infraumbilically I infiltrated the area using 0.25% Marcaine. I made a 5 mm incision with a knife and directed the Veress needle through the incision until intraperitoneal placement was confirmed using saline drop test. Opening pressure of 5 mmHg was noted. I proceeded to maximum pressure of 15 mmHg, at which point, I removed the Veress needle and introduced a 5 mm blunt trocar through the incision, which offers peritoneal access and I am able to confirm this using the laparoscope. Once I had peritoneal access achieved, I placed the patient in steep Trendelenburg. I am able to visualize all my pelvic anatomy findings as described above. I placed a second trocar suprapubically at 5 mm. The skin was infiltrated using 0.25% Marcaine. A 5 mm incision was made and a trocar was placed under direct visualization of the laparoscope. Once this was in place, I used a suction aircraft armament mechanic to evacuate the pelvis and copiously irrigated the pelvis using normal saline. Bilateral ovaries are inspected and found to be grossly normal. I then turned the procedure over to Dr. Whitten, who performed appendectomy. The Kronner uterine manipulator was removed. Funez catheter was removed after the procedure was complete. The patient tolerated the procedure well and was taken to recovery area in stable condition. Lap and sponge counts were correct at the end of the procedure. Instrument count was correct as well. Job ID: [id number] DocumentID: [id number] Dictated Date: 06/22/2018 14:31:36 Double Ending Machine Operator Date: 06/22/2018 16:48:33 Dictated By: CHITO DIANE DO
[2018-06-22 19:48] VITALS: BP 115/79
[2018-06-22] MEDS: SERTRALINE 100 MG (ZOLOFT) TAB PO SCH (19:53)
[2018-06-23] VITALS: BP 120/77
[2018-06-23] MEDS: fentaNYL INJECTION 100 MCG/2 ML AMP IV PRN ×6 (01:16→13:24)
[2018-06-23] MEDS: ONDANSETRON 4 MG/2 ML (SDV) Z0FRAN IV PRN ×2 (01:31→08:52)
[2018-06-23] MEDS: DOXYCYCLINE INJECTION 100 MG in NS (IVPB) 100 ML IV SCH (03:17)
[2018-06-23 04:00] VITALS: BP_SYST 120; BP_SYST 128; BP_DIAS 77; BP_DIAS 82
[2018-06-23] MEDS: CATHETER FLUSH 10 ML SYR IV SCH ×2 (05:18→10:25)
[2018-06-23] MEDS: PIPERACILLIN/TAZO 4.5 GM/NS 100 ML IV SCH ×2 (06:40)
[2018-06-23 08:00] VITALS: BP 122/90
--- NOTE | 2018-06-23 08:33 | Progress Note-Standard ---
Standard Progress Note Progress Notes/Assess & Plan Date Seen by a Provider: Jun 23, 2018 Time Seen by a Provider: 08:15 Progress/Assessment & Plan Patient is now POD 1 from laparoscopic appy and evacuation hematoperitoneum. Reports feeling better, but needs to pass gas. 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 CHITO DIANE DO Jun 23, 2018 8:33 am
[2018-06-23] MEDS: LACTATED RINGERS 1,000 ML IV SCH ×2 (08:56→10:38)
[2018-06-23 10:17] VITALS: BP 135/94
[2018-06-23] MEDS ORDERED: SIMETHICONE 80 MG (MYLICON) CHEW PO PRN (11:15)
[2018-06-23] MEDS ORDERED: DOCUSATE SODIUM 100 MG (COLACE) CAP PO PRN (11:15)
[2018-06-23] MEDS ORDERED: SIME80TA16 PO (11:58)
[2018-06-23] MEDS ORDERED: DOCU100C37 PO (11:58)
[2018-06-23 12:00] VITALS: BP 136/91
--- NOTE | 2018-06-23 14:07 | Anesthesia-General Post-Op ---
General Patient Condition Mental Status/LOC: Same as Preop Cardiovascular: Satisfactory Nausea/Vomiting: Absent Respiratory: Satisfactory Pain: Controlled Complications: Absent Post Op Complications Complications None Follow Up Care/Instructions Patient Instructions None needed. Anesthesia/Patient Condition Patient Condition Patient is having some abdominal pain which is to be expected, otherwise doing well, stable vital signs, no apparent adverse anesthesia problems. ANGEL CR DO Jun 23, 2018 14:07
[2018-06-23 15:57] VITALS: BP 136/91
[2018-06-23] MEDS ORDERED: DOXYCYCLINE 100 MG (VIBRAMYCIN) TABLET PO SCH (17:00)
--- OUTSIDE RECORDS SUMMARY | 2018-06-24 13:00 | XMS REPORT | Continuity of Care Document ---
Author Author [facility] Organization [facility] Address Unknown Phone Unavailable Allergies Active Description Code Type Severity Reaction Onset Reported/Identified Relationship to Patient Clinical Status Yes No Known Drug Allergies [id number] Drug Allergy Unknown N/A 09/18/2014 Medications There is no data. Problems Date Dx Coded Attending Type Code Diagnosis Diagnosed By 09/18/2014 Ot 535.50 UNSP GASTRITIS GASTRODUODENITIS W/O ME 09/18/2014 Ot 564.00 UNSPEC CONSTIPATION 09/18/2014 Ot 789.06 ABDOMINAL PAIN, EPIGASTRIC 01/27/2015 BRIAN PARDO APRN Ot 724.5 BACKACHE NOS 01/27/2015 BRIAN PARDO APRN Ot 786.52 PAINFUL RESPIRATION 05/09/2015 Ot 737.30 06/21/2018 EAMON LOUIE MD (DDU) Ot Z02.71 ENCOUNTER FOR DISABILITY DETERMINATION 06/21/2018 EAMON LOUIE MD (DDU) Ot Z02.71 ENCOUNTER FOR DISABILITY DETERMINATION 06/21/2018 EAMON LOUIE MD (U) Ot Z02.71 ENCOUNTER FOR DISABILITY DETERMINATION Procedures There is no data. Results Test [...] human chorionic gonadotropin (hCG) measurement NEGATIVE NEGATIVE Bacterial urine culture - 06/19/18 20:50 Bacterial urine culture SEE REPORT NRG COLONY COUNT . NRG Complete blood count (CBC) with automated white [...] protein measurement (mass/volume) 0.19 mg /dL 0.00-0.50 Microscopic examination by wet preparation - 06/19/18 23:52 WET PREP RESULTS 06/20 0002 BY Cornelia WILKINSON Chlamydia trachomatis DNA detection by probe and signal amplification method - 06/19/18 23:52 Chlamydia trachomatis DNA detection by probe and target amplification method Not Detected Not Detected Neisseria gonorrhoeae DNA detection by probe and signal amplification method - 06/19/18 23:52 Gonorrhea amp DNA-urine Not Detected Not Detected Complete blood count (CBC) with automated white blood cell (WBC) differential - 06/20/18 04:00 Blood leukocytes automated count (number/volume) 9.1 10*3/uL 4.3-11.0 Blood erythrocytes automated count (number/volume) 4.34 10*6/uL 4.35-5.85 Venous blood hemoglobin measurement (mass/volume) 9.7 g/dL 11.5-16.0 Blood hematocrit (volume fraction) 33 % 35-52 Automated erythrocyte mean corpuscular volume 75 [foz_us] 80-99 Automated erythrocyte mean corpuscular hemoglobin (mass per erythrocyte) 22 pg 25-34 Automated erythrocyte mean corpuscular hemoglobin concentration measurement ( mass/volume) 30 g/dL 32-36 Automated erythrocyte distribution width ratio 13.9 % 10.0-14.5 Automated blood platelet count (count/volume) 314 10*3/uL 130-400 Automated blood platelet mean volume measurement 12.4 [foz_us] 7.4-10.4 Automated blood neutrophils/100 leukocytes 68 % 42-75 Automated blood lymphocytes/100 leukocytes 21 % 12-44 Blood monocytes/100 leukocytes 10 % 0-12 Automated blood eosinophils/100 leukocytes 1 % 0-10 Automated blood basophils/100 leukocytes 0 % 0-10 Blood neutrophils automated count (number/volume) 6.2 10*3 1.8-7.8 Blood lymphocytes automated count (number/volume) 1.9 10*3 1.0-4.0 Blood monocytes automated count (number/volume) 0.9 10*3 0.0-1.0 Automated eosinophil count 0.1 10*3/uL 0.0-0.3 Automated blood basophil count (count/volume) 0.0 10*3/uL 0.0-0.1 Whole blood basic metabolic panel - 06/20/18 04:00 Serum or plasma sodium measurement (moles/volume) 140 mmol/L 135-145 Serum or plasma potassium measurement (moles/volume) 3.7 mmol/L 3.6-5.0 Serum or plasma chloride measurement (moles/volume) 105 mmol/L 98-107 Carbon dioxide 23 mmol/L 21-32 Serum or plasma anion gap determination (moles/volume) 12 mmol/L 5-14 Serum or plasma urea nitrogen measurement (mass/volume) 9 mg/dL 7-18 Serum or plasma creatinine measurement (mass/volume) 0.78 mg/dL 0.60-1.30 Serum or plasma urea nitrogen/creatinine mass ratio 12 NRG Serum or plasma creatinine measurement with calculation of estimated glomerular filtration rate > NRG Serum or plasma glucose measurement (mass/volume) 94 mg/dL 70-105 Serum or plasma calcium measurement (mass/volume) 9.5 mg/dL 8.5-10.1 Methicillin resistant Staphylococcus aureus (MRSA) screening culture - 07:30 Methicillin resistant Staphylococcus aureus (MRSA) screening culture NEG NRG Automated blood complete blood count (hemogram) panel - 06/21/18 06:17 Blood leukocytes automated count (number/volume) 4.6 10*3/uL 4.3-11.0 Blood erythrocytes automated count (number/volume) 3.44 10*6/uL 4.35-5.85 Venous blood hemoglobin measurement (mass/volume) 7.7 g/dL 11.5-16.0 Blood hematocrit (volume fraction) 26 % 35-52 Automated erythrocyte mean corpuscular volume 77 [foz_us] 80-99 Automated erythrocyte mean corpuscular hemoglobin (mass per erythrocyte) 22 pg 25-34 Automated erythrocyte mean corpuscular hemoglobin concentration measurement ( mass/volume) 29 g/dL 32-36 Automated erythrocyte distribution width ratio 14.2 % 10.0-14.5 Automated blood platelet count (count/volume) 235 10*3/uL 130-400 Automated blood platelet mean volume measurement 12.0 [foz_us] 7.4-10.4 Whole blood basic metabolic panel - 06/21/18 06:17 Serum or plasma sodium measurement (moles/volume) 141 mmol/L 135-145 Serum or plasma potassium measurement (moles/volume) 3.5 mmol/L 3.6-5.0 Serum or plasma chloride measurement (moles/volume) 110 mmol/L 98-107 Carbon dioxide 24 mmol/L 21-32 Serum or plasma anion gap determination (moles/volume) 7 mmol/L 5-14 Serum or plasma urea nitrogen measurement (mass/volume) 10 mg/dL 7-18 Serum or plasma creatinine measurement (mass/volume) 0.75 mg/dL 0.60-1.30 Serum or plasma urea nitrogen/creatinine mass ratio 13 NRG Serum or plasma creatinine measurement with calculation of estimated glomerular filtration rate > NRG Serum or plasma glucose measurement (mass/volume) 85 mg/dL 70-105 Serum or plasma calcium measurement (mass/volume) 8.2 mg/dL 8.5-10.1 Automated blood complete blood count (hemogram) panel - 06/22/18 08:25 Blood leukocytes automated count (number/volume) 5.3 10*3/uL 4.3-11.0 Blood erythrocytes automated count (number/volume) 3.74 10*6/uL 4.35-5.85 Venous blood hemoglobin measurement (mass/volume) 8.3 g/dL 11.5-16.0 Blood hematocrit (volume fraction) 28 % 35-52 Automated erythrocyte mean corpuscular volume 76 [foz_us] 80-99 Automated erythrocyte mean corpuscular hemoglobin (mass per erythrocyte) 22 pg 25-34 Automated erythrocyte mean corpuscular hemoglobin concentration measurement ( mass/volume) 29 g/dL 32-36 Automated erythrocyte distribution width ratio 14.1 % 10.0-14.5 Automated blood platelet count (count/volume) 248 10*3/uL 130-400 Automated blood platelet mean volume measurement 11.9 [foz_us] 7.4-10.4 Methicillin resistant Staphylococcus aureus (MRSA) screening culture - 10:40 Methicillin resistant Staphylococcus aureus (MRSA) screening culture NEG NRG Encounters ACCT No. Visit Date/Time Discharge Status Pt. Type Provider Facility Loc./Unit Complaint [id number] 06/19/2018 20:36:00 06/23/2018 16:04:00 DIS Outpatient XIN PLAZA MD [facility] SD ACUTE PELVIC PAIN [id number] 07/24/2015 10:22:00 07/24/2015 23:59:59 CLS Outpatient EAMON LOUIE MD (DDU) [facility] RAD DDU [id number] 01/27/2015 16:20:00 01/27/2015 17:40:00 DIS Emergency BRIAN PARDO APRN [facility] ER BACK PAIN [id number] 10/27/2014 14:47:00 Document Registration [id number] 10/24/2008 09:51:00 Document Registration
== END 2018-06-23 16:04 | disposition home or self-care (01) ==
LOC: EDUNIT# 20:32 → ER 20:35 → SDC 20:36 → 4TH 20:36 → UNDOADMOB 23:40 → 4TH 23:40 → UNDODISOB 06-23 16:04 → SDC 06-23 16:04
PROVIDERS: ATTEND Surgery
DX: K66.1 Hemoperitoneum (principal); K37 Unspecified appendicitis; D62 Acute posthemorrhagic anemia; N39.0 Urinary tract infection, site not specified; Z79.899 Other long term (current) drug therapy
CPT/HCPCS: 36415; 74177; 76830; 76856; 80048; 80053; 80306; 81000; 84703; 85025; 85027; 86141; 87081; 87088; 87210; 87491; 87591; 88304; 90471; 90686; 94664; 96365; 96375; 96376; G0378

== ENCOUNTER 2018-08-20 22:18 | Emergency (ER) | payer OTHER, MEDICAID ==
[~2018-08-20] VITALS: Ht 160 cm; Wt 48.5 kg
[~2018-08-20 22:18] MED LIST changes: +ACHD5005 PO; +DOCU100C37 PO; +HYDR-700 PO; +SERT100T8 PO; +SIME80TA16 PO
--- OUTSIDE RECORDS SUMMARY | 2018-08-20 22:23 | XMS REPORT | Continuity of Care Document ---
Author Author [facility] Organization [facility] Address Unknown Phone Unavailable Allergies Active Description Code Type Severity Reaction Onset Reported/Identified Relationship to Patient Clinical Status Yes No Known Drug Allergies [id number] Drug Allergy Unknown N/A 09/18/2014 Medications There is no data. Problems Date Dx Coded Attending Type Code Diagnosis Diagnosed By 09/18/2014 Ot 535.50 UNSP GASTRITIS GASTRODUODENITIS W/O ME 09/18/2014 Ot 564.00 UNSPEC CONSTIPATION 09/18/2014 Ot 789.06 ABDOMINAL PAIN, EPIGASTRIC 01/27/2015 BRIAN PARDO APRN Ot 724.5 BACKACHE NOS 01/27/2015 BRIAN PARDO PRODUCT INSPECTION SUPERVISOR Ot 786.52 PAINFUL RESPIRATION 05/09/2015 Ot 737.30 06/21/2018 EAMON LOUIE MD (DDU) Ot Z02.71 ENCOUNTER FOR DISABILITY DETERMINATION 06/21/2018 EAMON LOUIE MD (DDU) Ot Z02.71 ENCOUNTER FOR DISABILITY DETERMINATION 06/21/2018 EAMON LOUIE MD (DDU) Ot Z02.71 ENCOUNTER FOR DISABILITY DETERMINATION 06/23/2018 XIN PLAZA MD Ot D62 ACUTE POSTHEMORRHAGIC ANEMIA 06/23/2018 XIN PLAZA MD, Ot K37 UNSPECIFIED APPENDICITIS 06/23/2018 XIN PLAZA MD Ot K66.1 HEMOPERITONEUM 06/23/2018 XIN PLAZA MD, Ot N39.0 URINARY TRACT INFECTION, SITE NOT SPECIF 06/23/2018 XIN PLAZA MD Ot Z79.899 OTHER PRISON (CURRENT) DRUG THERAPY 06/28/2018 XIN PLAZA MD Ot D62 ACUTE POSTHEMORRHAGIC ANEMIA 06/28/2018 XIN PLAZA MD, Ot K37 UNSPECIFIED APPENDICITIS 06/28/2018 XIN PLAZA MD Ot K66.1 HEMOPERITONEUM 06/28/2018 KIDO MD, TAKAAKI Ot N39.0 URINARY TRACT INFECTION, SITE NOT SPECIF 06/28/2018 BOLA YANG XIN Ot Z79.899 OTHER PRISON (CURRENT) DRUG THERAPY 06/30/2018 BOLA YANG RENÉECARL Ot D62 ACUTE POSTHEMORRHAGIC ANEMIA 06/30/2018 BOLA YANG RENÉECARL Ot K37 UNSPECIFIED APPENDICITIS 06/30/2018 BOLA YANG RENÉECARL Ot K66.1 HEMOPERITONEUM 06/30/2018 BOLA YANG RENÉECARL Ot N39.0 URINARY TRACT INFECTION, SITE NOT SPECIF 06/30/2018 BOLA YANG XIN Ot Z79.899 OTHER PRISON (CURRENT) DRUG THERAPY 06/30/2018 BOLA YANG RENÉECARL Ot D62 ACUTE POSTHEMORRHAGIC ANEMIA 06/30/2018 BOLA YANG RENÉECARL Ot K37 UNSPECIFIED APPENDICITIS 06/30/2018 BOLA YANG RENÉECARL Ot K66.1 HEMOPERITONEUM 06/30/2018 BOLA YANG RENÉECARL Ot N39.0 URINARY TRACT INFECTION, SITE NOT SPECIF 06/30/2018 BOLA YANG RENÉECARL Ot Z79.899 OTHER PRISON (CURRENT) DRUG THERAPY Procedures There is no data. Results Test [...] WET PREP RESULTS 06/20 0002 BY Cornelia BEVERLY [facility] Chlamydia trachomatis DNA detection by probe and [...] Status Pt. Type Provider Facility Loc./Unit Complaint [id number] 06/19/2018 20:36:00 06/23/2018 16:04:00 DIS Outpatient XIN PLAZA MD [facility] ACUTE PELVIC PAIN [id number] 07/24/2015 10:22:00 07/24/2015 23:59:59 CLS Outpatient EAMON LOUIE MD (DDU) [facility] RAD DDU [id number] 01/27/2015 16:20:00 01/27/2015 17:40:00 DIS Emergency BRIAN PARDO APRN [facility] ER BACK PAIN [id number] 08/20/2018 22:19:00 ACT Emergency CELY LAWLER MD [facility] ER VOMITING,DIZZY [id number] 10/27/2014 14:47:00 Document Registration [id number] 10/24/2008 09:51:00 Document Registration [id number] 06/28/2018 14:00:00 06/28/2018 23:59:59 [facility] Outpatient GABRIELA MARTINEZ [facility]
--- OUTSIDE RECORDS SUMMARY | 2018-08-20 22:23 | XMS REPORT ---
Author Author CARMEN MALONE Organization [facility] Address [address] [place] [address] Care Team Providers Care Cabin Cleaning Supervisor Name Role Phone CARMEN MALONE Unavailable PROBLEMS Type Condition ICD9-CM Code DOT28-IN Code Onset Dates Condition Status SNOMED Code Problem Generalized anxiety disorder F41.1 Active 95577747 Problem Persistent depressive disorder with anxious distress, currently moderate F34.1 Active 69166008 Problem Panic disorder [episodic paroxysmal anxiety] F41.0 Active [id number] Problem Depressive disorder F32.9 Active [id number] ALLERGIES No Information ENCOUNTERS Encounter Location Date Diagnosis [place] [id number] [place] [phone] Aug, [facility] [id number] [place] [phone] Jul, [place] [address] [address] [place] [id number] [place] [phone] Jun, Generalized anxiety disorder F41.1 ; Persistent depressive disorder with anxious distress, currently moderate F34.1 and Panic disorder [ episodic paroxysmal anxiety] F41.0 [place] [id number] [place] [phone] May, Depressive disorder F32.9 [facility] [address] [place] [id number] [place] [phone] Apr, Depressive disorder F32.9 and Panic disorder [episodic paroxysmal anxiety] F41.0 IMMUNIZATIONS No Known Immunizations SOCIAL HISTORY Never Assessed REASON FOR VISIT Intake PLAN OF CARE Activity Details Follow Up Next available Reason: Follow-up VITAL SIGNS MEDICATIONS Medication Instructions Dosage Frequency Start Date End Date Duration Status HydrOXYzine HCl 25 MG Orally every 8 hrs 1 tablet as needed 8h Apr, 30 day(s) Active Sertraline HCl 100 mg Orally at bedtime 1 tablet 90 days Active RESULTS No Results PROCEDURES Procedure Date Ordered Result Body Site Psych diagnostic evaluation, established patient Jun 28, 2018 INSTRUCTIONS MEDICATIONS ADMINISTERED No Known Medications MEDICAL (GENERAL) HISTORY Type Description Date Medical History panic attacks Medical History anxiety Medical History depression Medical History alcohol syndrome Surgical History spinal surgery for scoliosis 2009 Surgical History tonsillectomy Surgical History eye surgery ( bilaterally) Hospitalization History surgery
--- NOTE | 2018-08-20 23:25 | ED General ---
General Chief Complaint: General Problems/Pain Stated Complaint: VOMITING,DIZZY Nursing Triage Note: PATIENT STATES THAT SHE HAS HAD FEELINGS OF NAUSEA AND DIFFICULTIES SLEEPING FOR AT LEAST A MONTH. PATIENT BELIEVES THE NAUSEA IS RELATED TO A NEW CONTROL PILL THAT HER DOCTOR PRESCRIBED HER. TODAY, PATIENT REPORTS THAT SHE FAINTED IN [facility] AND VOMITED. HER ROOMMATES STATE THAT SHE OUT "NOT RESPONSIVE" FOR 5 MINS. PATIENT IS NOT SURE IF SHE LOST CONSCIOUSNESS THOUGH HER ROOMMATES STATE SHE DID. Nursing Sepsis Screen: No Definite Risk Source of Information: Patient (ROSA AMADOR STUDENT) History of Present Illness Date Seen by Provider: Aug 20, 2018 Time Seen by Provider: 22:45 Initial Comments 22 y/o F presented with her two roommates following an episode of LOC and vomiting that occurred today at [facility]. She has had nausea for about 1 month and attributes it to starting a new control pill. In June, she was found to have an ovarian cyst and had it and her appendix removed surgically. She was subsequently started on control. She has also not been sleeping well but believes that this has occurred for more than 1 month. Since her surgery she has been "locked in her room" due to generalized malaise and not feeling well. She does not eat well due to this, too. She drinks 2 liters of soda per day and some water. Today, she was at [facility] and was dizzy/ lightheaded and fainted at about 9:30pm. She does remember the incident but her roommates stated that she was "not responsive" for 5 minutes. She denies prior episodes. Following her syncopal episode, she vomited. She does still have some nausea. She has not had diarrhea or constipation. She has had some increased urinary frequency over the past 3 days. She started vaping about 3 weeks ago and admits to smoking marijuana occasionally, last time last week. Modifying Factors: improves with Rest Associated Systoms: No Chest Pain, No Cough, No Fever/Chills; Headaches, Loss of Appetite, Malaise, Nausea/Vomiting; No Rash; Syncope (ROSA AMADOR STUDENT) Timing/Duration: Changing Over Time Severity: Moderate Associated Systoms: Nausea/Vomiting, Syncope (CELY LAWLER MD) Allergies and Home Medications Allergies Coded Allergies: No Known Drug Allergies (Unverified , 09/18/14) Home Medications Docusate Sodium 100 Mg Capsule, 100 MG PO BID PRN for CONSTIPATION-1ST LINE Prescribed by: WILBUR NIÑO on 06/23/18 1158 Hydrocodone Bit/Acetaminophen 1 Tab Tab, 1 TAB PO Q4-6HR PRN for PAIN-MODERATE Prescribed by: XIN PLAZA on 06/22/18 1235 Hydroxyzine HCl 25 Mg Tablet, 25 MG PO BID PRN for ANXIETY, (Reported) Sertraline HCl 100 Mg Tablet, 100 MG PO HS, (Reported) Simethicone 80 Mg Tab.chew, 80 MG PO PCHS PRN for ABDOMINAL PAIN Prescribed by: WILBUR NIÑO on 06/23/18 1158 Patient Home Medication List Home Medication List Reviewed: Yes (ROSA AMADOR STUDENT) Home Medication List Reviewed: Yes (CELY LAWLER MD) Review of Systems Review of Systems Constitutional: chills; No diaphoresis; dizziness; No fever; malaise EENTM: No blurred vision, No double vision, No nose congestion, No throat pain Respiratory: No cough, No short of breath, No wheezing Cardiovascular: No chest pain, No edema, No palpitations; syncope Gastrointestinal: No abdominal pain, No constipation, No diarrhea, No hematemesis; loss of appetite, nausea (nausea on and off for 1 month), vomiting (vomiting started today x1) Genitourinary: No decreased output, No discharge, No dysuria; frequency (x3 days); No hematuria Musculoskeletal: No joint pain, No joint swelling Skin: No lesions, No lumps, No rash Psychiatric/Neurological: Anxiety, Depressed, Headache; Denies Numbness, Denies Seizure, Denies Weakness Hematologic/Lymphatic: Anemia; Denies Easy Bleeding, Denies Easy Bruising ( ROSA AMADOR STUDENT) Constitutional: chills, malaise Cardiovascular: No chest pain; syncope Musculoskeletal: No muscle pain, No muscle stiffness Psychiatric/Neurological: Anxiety, Depressed Hematologic/Lymphatic: Anemia; Denies Blood Clots (CELY LAWLER MD) All Other Systems Reviewed Negative Unless Noted: Yes (CELY LAWLER MD) Past Lnmocvb-Rhkzap-Yzgltb Hx Past Med/Social Hx: Reviewed Nursing Past Med/Soc Hx (CELY LAWLER MD) Patient Social History Alcohol Use: Denies Use Recreational Drug Use: No Smoking Status: Current Everyday Smoker Type Used: Electronic/Vapor (10x per day) 2nd Hand Smoke Exposure: No Recent Foreign Travel: No Contact w/Someone Who Travel: No Recent Infectious Disease Expo: No Recent Hopitalizations: No (TAMEKAAGUEDATHOMASROSA Sloan STUDENT) Immunizations Up To Date Tetanus Booster (TDap): Unknown (TAMEKAMAGYROSA Luther FELIPE) Seasonal Allergies Seasonal Allergies: No (TAMEKADONNAROSA Sloan EDSTINEE) Past Medical History Surgeries: Yes (RODS PLACED IN BACK FROM SCOLOSIS, CORRECTIVE EYE SURGERY) Appendectomy, Eye Surgery Respiratory: No Cardiac: No Neurological: No Reproductive Disorders: No Female Reproductive Disorders: Ovarian Cyst (removed in June) Genitourinary: No Gastrointestinal: No Musculoskeletal: No Scoliosis Endocrine: No HEENT: No Loss of Vision: Denies Cancer: No Psychosocial: No Anxiety, Depression Integumentary: No Blood Disorders: No (TAMEKADONNAROSA Luther FELIPE) Surgeries: Yes Orthopedic Female Reproductive Disorders: Ovarian Cyst (removed in June) Anxiety, Depression (CELY LAWLER MD) Family Medical History Reviewed Nursing Family Hx (PERRYROSA Luther FELIPE) Reviewed Nursing Family Hx (CELY LAWLER MD) No Pertinent Family Hx (PERRYROSA Luther FELIPE) Physical Exam Vital Signs Vital Signs - First Documented 08/20/18 22:42 Temp 98.8 Pulse 112 Resp 18 B/P (MAP) 112/80 (91) Pulse Ox 98 (CELY LAWLER MD) Vital Signs Capillary Refill : Less Than 3 Seconds (TAMEKADONNAROSA Luther FELIPE) Height, Weight, BMI Height: 5'3.00" Weight: 107lbs. 0oz. 48.437078xw; 19.9 BMI Method:Stated General Appearance: No Apparent Distress, WD/WN, Anxious, Thin Eyes: Left Eye Other (strabismus ) HEENT: TMs Normal, Normal ENT Inspection, Pharynx Normal, Moist Mucous Membranes Neck: Full Range of Motion, Normal Inspection, Non Tender, Supple Respiratory: Chest Non Tender, Lungs Clear, Normal Breath Sounds, No Accessory Muscle Use, No Respiratory Distress Cardiovascular: Regular Rate, Rhythm, No Edema, No Murmur, Normal Peripheral Pulses, Tachycardia Gastrointestinal: Normal Bowel Sounds, No Organomegaly, Soft, Tenderness (mild suprapubic tenderness) Back: No CVA Tenderness, No Vertebral Tenderness, Decreased Range of Motion, Other (scoliosis) Extremity: Normal Inspection, Normal Range of Motion, Non Tender, No Calf Tenderness, No Pedal Edema Neurologic/Psychiatric: Alert, Oriented x3, No Motor/Sensory Deficits Skin: Normal Color, Warm/Dry (ROSA AMADOR STUDENT) General Appearance: No Apparent Distress, WD/WN Respiratory: Lungs Clear, Normal Breath Sounds Cardiovascular: Regular Rate, Rhythm, No Edema, No Murmur Gastrointestinal: Non Tender, Soft Extremity: Non Tender, No Calf Tenderness, No Pedal Edema Skin: Normal Color, Warm/Dry (CELY LAWLER MD) Progress/Results/Core Measures Suspected Sepsis Recent Fever Within 48 Hours: No Infection Criteria Present: None New/Unexplained Altered Menta: No Sepsis Screen: No Definite Risk SIRS Temperature:98.8 Pulse: 112 Respiratory Rate: 18 Laboratory Tests 08/20/18 23:55: White Blood Count 8.3 Blood Pressure 112 /80 Mean: 91 Laboratory Tests 08/20/18 23:55: Creatinine 0.87, Platelet Count 356, Total Bilirubin 0.4 (PERRYROSA Luther STUDENT) Results/Orders Lab Results Laboratory Tests Test 08/20/18 23:55 08/21/18 00:05 Range/Units White Blood Count 8.3 4.3-11.0 10^3/uL Red Blood Count 5.11 4.35-5.85 10^6/uL Hemoglobin 10.6 L 11.5-16.0 G/DL Hematocrit 36 35-52 % Mean Corpuscular Volume 71 L 80-99 FL Mean Corpuscular Hemoglobin 21 L 25-34 PG Mean Corpuscular Hemoglobin Concent 29 L 32-36 G/DL Red Cell Distribution Width 15.5 H 10.0-14.5 % Platelet Count 356 130-400 10^3/uL Mean Platelet Volume 12.4 H 7.4-10.4 FL Neutrophils (%) (Auto) 76 H 42-75 % Lymphocytes (%) (Auto) 15 12-44 % Monocytes (%) (Auto) 8 0-12 % Eosinophils (%) (Auto) 1 0-10 % Basophils (%) (Auto) 1 0-10 % Neutrophils # (Auto) 6.3 1.8-7.8 X 10^3 Lymphocytes # (Auto) 1.2 1.0-4.0 X 10^3 Monocytes # (Auto) 0.7 0.0-1.0 X 10^3 Eosinophils # (Auto) 0.1 0.0-0.3 10^3/uL Basophils # (Auto) 0.0 0.0-0.1 10^3/uL Sodium Level 139 135-145 MMOL/L Potassium Level 4.5 3.6-5.0 MMOL/L Chloride Level 103 98-107 MMOL/L Carbon Dioxide Level 21 21-32 MMOL/L Anion Gap 15 H 5-14 MMOL/L Blood Urea Nitrogen 12 7-18 MG/DL Creatinine 0.87 0.60-1.30 MG/DL Estimat Glomerular Filtration Rate > 60 BUN/Creatinine Ratio 14 Glucose Level 104 70-105 MG/DL Calcium Level 10.0 8.5-10.1 MG/DL Corrected Calcium 8.5-10.1 MG/DL Total Bilirubin 0.4 0.1-1.0 MG/DL Aspartate Amino Transf (AST/SGOT) 16 5-34 U/L Alanine Aminotransferase (ALT/SGPT) 10 0-55 U/L Alkaline Phosphatase 51 40-136 U/L Total Protein 8.8 H 6.4-8.2 GM/DL Albumin 5.2 H 3.2-4.5 GM/DL Urine Color CEDRIC H Urine Clarity SLIGHTLY CLOUDY Urine pH 5 5-9 Urine Specific [place] 1.030 H 1.016-1.022 Urine Protein 2+ H NEGATIVE Urine Glucose (UA) NEGATIVE NEGATIVE Urine Ketones 1+ H NEGATIVE Urine Nitrite NEGATIVE NEGATIVE Urine Bilirubin 1+ H NEGATIVE Urine Urobilinogen NORMAL NORMAL MG/DL Urine Leukocyte Esterase 1+ H NEGATIVE Urine RBC (Auto) NEGATIVE NEGATIVE Urine RBC NONE /HPF Urine WBC RARE /HPF Urine Squamous Epithelial Cells 2-5 /HPF Urine Crystals NONE /LPF Urine Bacteria TRACE /HPF Urine Casts NONE /LPF Urine Mucus LARGE H /LPF Urine Culture Indicated NO (CELY LAWLER MD) My Orders Orders - CELY LAWLER MD Urine Bedside (08/20/18 23:40) Ua Culture If Indicated (08/20/18 23:40) Cbc With Automated Diff (08/20/18 23:40) Comprehensive Metabolic Panel (08/20/18 23:40) Ondansetron Injection (Zofran Injectio (08/20/18 23:45) Ns Iv 1000 Ml (Sodium Chloride 0.9%) (08/20/18 23:40) Saline Lock/Iv-Start (08/20/18 23:40) (CELY LAWLER MD) Medications Given in ED Current Medications Medications Dose Ordered Sig/Kassandra Route Start Time Stop Time Status Last Admin Dose Admin Ondansetron HCl 4 mg ONCE ONCE IVP 08/20/18 23:45 08/20/18 23:46 DC 08/20/18 23:57 4 MG (CELY LAWLER MD) Vital Signs/I&O 08/20/18 22:42 Temp 98.8 Pulse 112 Resp 18 B/P (MAP) 112/80 (91) Pulse Ox 98 (CELY LAWLER MD) Vital Signs/I&O Capillary Refill : Less Than 3 Seconds (ROSA AMADOR STUDENT) Blood Pressure Mean: 91 Progress Note : Time: 00:00 Progress Note UA, urine test, CBC, CMP ordered. 4mg zofran, IVF (ROSA AMADOR STUDENT) Progress Note : Progress Note Have seen and evaluated the patient and agree with above except as indicated. I Have directed the plan of care. Labs, UA and IV ordered. Normal saline 1 L bolus and Zofran 4 mg IV. Patient is here after syncopal episode today. She reports month-long depression symptoms including malaise, decreased appetite and difficulty sleeping. She is on medications for depression and anxiety but states they're not working well. She admits to not eating or drinking well and only had a Pop Tart today. 0045: Overall feels better and would like to go home. I did talk with her at length about talking with her DrNadira for further depression and anxiety treatment. She states that she will. Discharged home with return precautions. Patient verbalize understanding instructions and agreement with plan. (CELY LAWLER MD) Departure Impression Primary Impression: Syncopal episodes Qualified Codes: R55 - Syncope and collapse Additional Impression: Depression Qualified Codes: F32.9 - Major depressive disorder, single episode, unspecified Disposition: HOME, SELF-CARE Condition: Stable Departure-Patient Inst. Decision time for Depature: 00:50 (CELY LAWLER MD) Referrals: [facility] [place] (PCP/Family) Primary Care Physician Patient Instructions: Depression, Adult (DC), Syncope (Fainting) (DC) Add. Discharge Instructions: All discharge instructions reviewed with patient and/or family. Voiced understanding. It is very important that you eat a normal diet and drink plenty of fluids. Follow-up with your doctor this week for recheck and further evaluation and discussed with them about further anxiety and depression treatment. Continue home meds as previously prescribed. You should stop using Vape. Return for worse pain, fever, vomiting, weakness, breathing problems, chest pain or other concerns as needed. ROSA AMADOR STUDENT Aug 20, 2018 23:25 CELY LAWLER MD Aug 21, 2018 00:50
[2018-08-20] MEDS ORDERED: NS IV 1000 ML 1,000 ML IV STA (23:40)
[2018-08-20] MEDS ORDERED: ONDANSETRON 4 MG/2 ML (SDV) Z0FRAN IVP ONE (23:45)
[2018-08-21 00:07] LABS: BASOPHILS % (AUTO) 1 % (0-10); EOSINOPHILS # (AUTO) 0.1 10^3/uL (0.0-0.3); EOSINOPHILS % (AUTO) 1 % (0-10); HEMATOCRIT 36 % (35-52); HEMOGLOBIN 10.6 G/DL (11.5-16.0); LYMPHOCYTES # (AUTO) 1.2 X 10^3 (1.0-4.0); LYMPHOCYTES % (AUTO) 15 % (12-44); MEAN CORPUSCULAR HEMOGLOBIN 21 PG (25-34); MEAN CORPUSCULAR HGB CONC 29 G/DL (32-36); MEAN CORPUSCULAR VOLUME 71 FL (80-99); MEAN PLATELET VOLUME 12.4 FL (7.4-10.4); MONOCYTES # (AUTO) 0.7 X 10^3 (0.0-1.0); MONOCYTES % (AUTO) 8 % (0-12); NEUTROPHILS # (AUTO) 6.3 X 10^3 (1.8-7.8); NEUTROPHILS % (AUTO) 76 % (42-75); PLATELET COUNT 356 10^3/uL (130-400); RED CELL DISTRIBUTION WIDTH 15.5 % (10.0-14.5); WHITE BLOOD COUNT 8.3 10^3/uL (4.3-11.0)
[2018-08-21 00:13] LABS: CLARITY,URINE SLIGHTLY CLOUDY; COLOR,URINE AMBER; GLUCOSE, URINE (UA) NEGATIVE (NEGATIVE); KETONES,URINE 1+ (NEGATIVE); LEUKOCYTE ESTERASE ,URINE 1+ (NEGATIVE); NITRITE,URINE NEGATIVE (NEGATIVE); PH,URINE 5 (5-9); PROTEIN,URINE 2+ (NEGATIVE); UROBILINOGEN,URINE NORMAL (NORMAL)
[2018-08-21 00:22] LABS: ALANINE AMINOTRANSFERASE 10 U/L (0-55); ALBUMIN 5.2 GM/DL (3.2-4.5); ALKALINE PHOSPHATASE 51 U/L (40-136); BILIRUBIN,TOTAL 0.4 MG/DL (0.1-1.0); BUN/CREATININE RATIO 14; CARBON DIOXIDE 21 MMOL/L (21-32); CHLORIDE 103 MMOL/L (98-107); CREATININE SERUM 0.87 MG/DL (0.60-1.30); GFR ESTIMATED > 60; GLUCOSE 104 MG/DL (70-105); POTASSIUM 4.5 MMOL/L (3.6-5.0); SODIUM 139 MMOL/L (135-145); TOTAL PROTEIN 8.8 GM/DL (6.4-8.2)
[2018-08-21 00:26] LABS: BACTERIA,URINE TRACE /HPF; BILIRUBIN,URINE 1+ (NEGATIVE); WBC,URINE RARE /HPF
[2018-08-21 00:56] VITALS: BP 122/89
== END 2018-08-21 00:53 | disposition home or self-care (01) ==
LOC: EDUNIT# 22:18 → ER 22:19
DX: R55 Syncope and collapse (principal); F32.9 Major depressive disorder, single episode, unspecified; M41.9 Scoliosis, unspecified; F41.9 Anxiety disorder, unspecified; F17.290 Nicotine dependence, other tobacco product, uncomplicated; Z90.49 Acquired absence of other specified parts of digestive tract; Z87.448 Personal history of other diseases of urinary system; Z98.890 Other specified postprocedural states
CPT/HCPCS: 36415; 80053; 81000; 84703; 85025

== ENCOUNTER 2019-03-08 23:54 | Emergency (ER) | payer OTHER, MEDICAID ==
[~2019-03-08] VITALS: Ht 160 cm; Wt 51.3 kg
[2019-03-09 00:44] LABS: BASOPHILS % (AUTO) 1 % (0-10); EOSINOPHILS # (AUTO) 0.1 10^3/uL (0.0-0.3); EOSINOPHILS % (AUTO) 2 % (0-10); HEMATOCRIT 32 % (35-52); HEMOGLOBIN 9.3 G/DL (11.5-16.0); LYMPHOCYTES # (AUTO) 1.5 X 10^3 (1.0-4.0); LYMPHOCYTES % (AUTO) 29 % (12-44); MEAN CORPUSCULAR HEMOGLOBIN 20 PG (25-34); MEAN CORPUSCULAR HGB CONC 29 G/DL (32-36); MEAN CORPUSCULAR VOLUME 69 FL (80-99); MEAN PLATELET VOLUME 12.6 FL (7.4-10.4); MONOCYTES # (AUTO) 0.7 X 10^3 (0.0-1.0); MONOCYTES % (AUTO) 13 % (0-12); NEUTROPHILS % (AUTO) 56 % (42-75); PLATELET COUNT 333 10^3/uL (130-400); RED CELL DISTRIBUTION WIDTH 17.1 % (10.0-14.5); WHITE BLOOD COUNT 5.4 10^3/uL (4.3-11.0)
[2019-03-09] MEDS ORDERED: ANTACID SUSP 30 ML UDC (MYLANTA) PO ONE (00:45)
[2019-03-09] MEDS ORDERED: ONDANSETRON 4 MG/2 ML (SDV) Z0FRAN IVP ONE (00:45)
[2019-03-09] MEDS ORDERED: LIDOCAINE 2% VISCOUS 15 ML UDC PO ONE (00:45)
[2019-03-09 00:48] LABS: BILIRUBIN,URINE NEGATIVE (NEGATIVE); CLARITY,URINE CLEAR; COLOR,URINE YELLOW; GLUCOSE, URINE (UA) NEGATIVE (NEGATIVE); KETONES,URINE NEGATIVE (NEGATIVE); LEUKOCYTE ESTERASE ,URINE 1+ (NEGATIVE); NITRITE,URINE NEGATIVE (NEGATIVE); PH,URINE 6.5 (5-9); PROTEIN,URINE NEGATIVE (NEGATIVE); UROBILINOGEN,URINE NORMAL (NORMAL)
[2019-03-09 00:56] LABS: ALANINE AMINOTRANSFERASE 13 U/L (0-55); ALBUMIN 4.9 GM/DL (3.2-4.5); ALKALINE PHOSPHATASE 47 U/L (40-136); BILIRUBIN,TOTAL 0.2 MG/DL (0.1-1.0); BUN/CREATININE RATIO 11; CALCIUM 9.5 MG/DL (8.5-10.1); CARBON DIOXIDE 22 MMOL/L (21-32); CHLORIDE 104 MMOL/L (98-107); CREATININE SERUM 0.81 MG/DL (0.60-1.30); GFR ESTIMATED > 60; GLUCOSE 112 MG/DL (70-105); LIPASE 57 U/L (8-78); POTASSIUM 3.8 MMOL/L (3.6-5.0); SODIUM 139 MMOL/L (135-145); TOTAL PROTEIN 8.3 GM/DL (6.4-8.2)
[2019-03-09 00:57] LABS: BACTERIA,URINE NEGATIVE /HPF; WBC,URINE RARE /HPF
[2019-03-09] MEDS ORDERED: KETOROLAC 30 MG/ML VIAL IVP ONE (01:00)
[2019-03-09] MEDS ORDERED: HYOSCYAMINE 0.125 MG (LEVSIN) TAB SL ONE (01:00)
--- NOTE | 2019-03-09 01:02 | ED Abdominal Pain ---
General Chief Complaint: Abdominal/GI Problems Stated Complaint: NAUSEA,STARTED PERIOD Nursing Triage Note: c/o abdominal pain, verbalizes "i think i had a cyst rupture on my ovary" Sepsis Screen: No Definite Risk Source of Information: Patient Exam Limitations: No Limitations (YENNIFER PALM MD) History of Present Illness Date Seen by Provider: Mar 09, 2019 Time Seen by Provider: 12:40 Initial Comments A 23 yo female presents to the ER complaining of nausea and cramps that began around 2100. She did state that she had symptoms 2 days ago but it was only significant for headache and shortness of air on exertion. The patient states that she feels warmer than normal but does not complain of any chills. The patient also states that she has had some vaginal spotting and believes that she had started her period. She thinks these symptoms may be related. Normally Midol helps her cramping but was not effective this afternoon. The patient takes an Oral Contraceptive Pill once a month. She had a bowel movement this morning and does not have any burning during urination. (MECHELLE SINGH) Allergies and Home Medications Allergies Coded Allergies: No Known Drug Allergies (Unverified , 03/09/19) Home Medications Docusate Sodium 100 Mg Capsule, 100 MG PO BID PRN for CONSTIPATION-1ST LINE Prescribed by: WILBUR NIÑO on 06/23/18 1158 Hydrocodone Bit/Acetaminophen 1 Tab Tab, 1 TAB PO Q4-6HR PRN for PAIN-MODERATE Prescribed by: XIN PLAZA on 06/22/18 1235 Hydroxyzine HCl 25 Mg Tablet, 25 MG PO BID PRN for ANXIETY, (Reported) Hyoscyamine Sulfate 0.125 Mg Tab.subl, 0.125 MG SL Q4H PRN for CRAMPS Prescribed by: YENNIFER LAROSE on 03/09/19 0146 Ondansetron 4 Mg Tab.rapdis, 4 MG SL Q4H PRN for NAUSEA/VOMITING Prescribed by: YENNIFER LAROSE on 03/09/19 0146 Sertraline HCl 100 Mg Tablet, 100 MG PO HS, (Reported) Simethicone 80 Mg Tab.chew, 80 MG PO PCHS PRN for ABDOMINAL PAIN Prescribed by: WILBUR NIÑO on 06/23/18 1158 Patient Home Medication List Home Medication List Reviewed: Yes (YENNIFER PALM MD) Review of Systems Review of Systems Constitutional: No chills; fever, weakness Respiratory: SOA With Exertion Cardiovascular: Denies Chest Pain Gastrointestinal: Denies Abdominal Pain, Denies Constipated, Denies Diarrhea; Nausea; Denies Vomiting Genitourinary: Denies Burning, Denies Discharge, Denies Frequency (MECHELLE SINGH) Past Umfsluq-Ahgkgk-Xvtzdw Hx Past Med/Social Hx: Reviewed and Corrections made (YENNIFER PALM MD) Patient Social History Alcohol Use: Occasionally Uses Recreational Drug Use: No Type Used: Electronic/Vapor 2nd Hand Smoke Exposure: No Recent Foreign Travel: No Contact w/Someone Who Travel: No Recent Infectious Disease Expo: No Recent Hopitalizations: No Physical Abuse: No Sexual Abuse: No Mistreated: No Fear: No (YENNIFER PALM MD) Alcohol Use: Occasionally Uses (MECHELLE SINGH) Immunizations Up To Date Tetanus Booster (TDap): Unknown (YENNIFER PALM MD) Seasonal Allergies Seasonal Allergies: No (YENNIFER PALM MD) Past Medical History Surgeries: Yes Appendectomy, Cystectomy (ovarian cystectomy), Orthopedic Respiratory: No Cardiac: No Neurological: No : No Last Menstrual Period: Feb 02, 2019 Reproductive Disorders: Yes Female Reproductive Disorders: Ovarian Cyst Genitourinary: No Gastrointestinal: No Musculoskeletal: Yes Scoliosis Endocrine: No HEENT: No Loss of Vision: Denies Cancer: No Psychosocial: Yes Anxiety, Depression Integumentary: No Blood Disorders: No (YENNIFER PALM MD) Family Medical History No Pertinent Family Hx (YENNIFER PALM MD) Physical Exam Vital Signs Vital Signs - First Documented 03/09/19 00:00 Temp 98.3 Pulse 102 Resp 18 B/P (MAP) 145/102 (116) Pulse Ox 100 (MECHELLE SINGH) Vital Signs Capillary Refill : Less Than 3 Seconds (YENNIFER PALM MD) Height/Weight/BMI Height: 5'3.00" Weight: 113lbs. 0oz. 51.650421cw; 19.9 BMI Method:Stated (YENNIFER PALM MD) General Appearance: WD/WN, mild distress Respiratory: chest non-tender, lungs clear, normal breath sounds, no respiratory distress, no accessory muscle use Cardiovascular: normal peripheral pulses (Radial Pulse), regular rate, rhythm, no edema, no gallop, no JVD, no murmur Peripheral Pulses: 2+ Radial Pulses (R), 2+ Radial Pulses (L) Gastrointestinal: no organomegaly, no pulsatile mass, abnormal bowel sounds (Hyperactive), distended, tenderness (Epigastric area) Extremities: non-tender, normal inspection, no pedal edema, no calf tenderness Skin: normal color, warm/dry Exam Comments Became nauseous during epigastric palpation (MECHELLE SINGH) Progress/Results/Core Measures Results/Orders Lab Results Laboratory Tests Test 03/09/19 00:05 03/09/19 00:30 Range/Units White Blood Count 5.4 4.3-11.0 10^3/uL Red Blood Count 4.67 4.35-5.85 10^6/uL Hemoglobin 9.3 L 11.5-16.0 G/DL Hematocrit 32 L 35-52 % Mean Corpuscular Volume 69 L 80-99 FL Mean Corpuscular Hemoglobin 20 L 25-34 PG Mean Corpuscular Hemoglobin Concent 29 L 32-36 G/DL Red Cell Distribution Width 17.1 H 10.0-14.5 % Platelet Count 333 130-400 10^3/uL Mean Platelet Volume 12.6 H 7.4-10.4 FL Neutrophils (%) (Auto) 56 42-75 % Lymphocytes (%) (Auto) 29 12-44 % Monocytes (%) (Auto) 13 H 0-12 % Eosinophils (%) (Auto) 2 0-10 % Basophils (%) (Auto) 1 0-10 % Neutrophils # (Auto) 3.0 1.8-7.8 X 10^3 Lymphocytes # (Auto) 1.5 1.0-4.0 X 10^3 Monocytes # (Auto) 0.7 0.0-1.0 X 10^3 Eosinophils # (Auto) 0.1 0.0-0.3 10^3/uL Basophils # (Auto) 0.0 0.0-0.1 10^3/uL Sodium Level 139 135-145 MMOL/L Potassium Level 3.8 3.6-5.0 MMOL/L Chloride Level 104 98-107 MMOL/L Carbon Dioxide Level 22 21-32 MMOL/L Anion Gap 13 5-14 MMOL/L Blood Urea Nitrogen 9 7-18 MG/DL Creatinine 0.81 0.60-1.30 MG/DL Estimat Glomerular Filtration Rate > 60 BUN/Creatinine Ratio 11 Glucose Level 112 H 70-105 MG/DL Calcium Level 9.5 8.5-10.1 MG/DL Corrected Calcium 8.5-10.1 MG/DL Total Bilirubin 0.2 0.1-1.0 MG/DL Aspartate Amino Transf (AST/SGOT) 11 5-34 U/L Alanine Aminotransferase (ALT/SGPT) 13 0-55 U/L Alkaline Phosphatase 47 40-136 U/L Total Protein 8.3 H 6.4-8.2 GM/DL Albumin 4.9 H 3.2-4.5 GM/DL Lipase 57 8-78 U/L Serum Test, Qualitative NEGATIVE NEGATIVE Urine Color YELLOW Urine Clarity CLEAR Urine pH 6.5 5-9 Urine Specific [place] 1.015 L 1.016-1.022 Urine Protein NEGATIVE NEGATIVE Urine Glucose (UA) NEGATIVE NEGATIVE Urine Ketones NEGATIVE NEGATIVE Urine Nitrite NEGATIVE NEGATIVE Urine Bilirubin NEGATIVE NEGATIVE Urine Urobilinogen NORMAL NORMAL MG/DL Urine Leukocyte Esterase 1+ H NEGATIVE Urine RBC (Auto) 1+ H NEGATIVE Urine RBC 2-5 H /HPF Urine WBC RARE /HPF Urine Squamous Epithelial Cells 2-5 /HPF Urine Crystals NONE /LPF Urine Bacteria NEGATIVE /HPF Urine Casts NONE /LPF Urine Mucus MODERATE H /LPF Urine Culture Indicated NO (MECHELLE SINGH) Vital Signs/I&O 03/09/19 00:00 Temp 98.3 Pulse 102 Resp 18 B/P (MAP) 145/102 (116) Pulse Ox 100 (MECHELLE SINGH) Blood Pressure Mean: 116 Departure Impression Primary Impression: Abdominal cramping Additional Impressions: Lower abdominal pain Epigastric pain Absent nausea Anemia Qualified Codes: D64.9 - Anemia, unspecified Disposition: HOME, SELF-CARE Condition: Improved Departure-Patient Inst. Decision time for Depature: 01:42 (YENNIFER PALM MD) Referrals: [facility] (PCP/Family) Primary Care Physician Patient Instructions: Acute Abdomen (Belly Pain), Adult (DC), Viral Gastroenteritis Add. Discharge Instructions: Stick with a clear liquid diet until your symptoms improve. Use Zofran (ondansetron) as prescribed for nausea and vomiting. Use Levsin (hyoscyamine) as prescribed for cramping and diarrhea. You may use Tylenol (acetaminophen) up to 650 mg every 6 hours as needed for pain. For upper abdominal pain and heartburn you may use an [id number] antacid medication such as Tums, Pepcid (famotidine), omeprazole, etc. Return to care if you have worsening symptoms. I suspect you are having symptoms related to gastroenteritis. You may develop diarrhea sometime over the next couple of days. All discharge instructions reviewed with patient and/or family. Voiced und erstanding. Scripts Ondansetron (Ondansetron Odt) 4 Mg Tab.rapdis 4 MG SL Q4H PRN for NAUSEA/VOMITING, #10 TAB Prov: YENNIFER PALM MD 03/09/19 Hyoscyamine Sulfate (Levsin-Sl) 0.125 Mg Tab.subl 0.125 MG SL Q4H PRN for CRAMPS, #10 TAB 0 Refills Prov: YENNIFER PALM MD 03/09/19 This patient was personally interviewed and examined by me along with Mechelle Singh, MS 3. I agree with his history, physical, and documentation with the following additions. Patient presents to the ER with nausea and abdominal discomfort with cramping that started around 21:00. She denies . Her last menstrual period was around the end of January. She is on oral control. She noted blood in her underwear and on the toilet paper this evening presuming she was starting her period. Today she became very nauseated but did not vomit. She had a normal bowel movement this morning and denies diarrhea or constipation. She has questionable subjective fever as well as headache and has felt short of breath. Vital signs are unremarkable. Exam: Gen.: Alert, oriented, no significant distress HEENT: Normocephalic and atraumatic, mucous membranes moist Heart: Regular rate and rhythm without murmur Lungs: Clear to auscultation bilaterally with normal effort Abdomen: Soft, hyperactive bowel sounds, bloated, no focal tenderness (epigastric tenderness noted by medical student resolved after GI cocktail) Skin: Warm and dry, normal color Neuropsych: Alert, oriented Patient received a GI cocktail and Zofran for epigastric symptoms. Nausea did not completely resolve. She was then given Phenergan 12.5 mg mixed in her IV fluids. Cramping was treated with Levsin. Toradol was used to treat pain. Workup was unremarkable except for chronic anemia. Patient was ultimately discharged in improved condition. I suspect she has a viral gastroenteritis. (YENNIFER PALM MD) YENNIFER PALM MD Mar 09, 2019 01:02 MECHELLE SINGH [facility] Mar 09, 2019 01:10
[2019-03-09 01:15] VITALS: BP 122/96
[2019-03-09] MEDS ORDERED: NS IV 500 ML 500 ML IV ONE (01:40)
[2019-03-09] MEDS ORDERED: PROMETHAZINE INJ 25 MG/ML (PHENERGAN) AMP IVP ONE (01:45)
[2019-03-09] MEDS ORDERED: HYOS0.1283 SL (01:46)
[2019-03-09] MEDS ORDERED: ONDA4TAB11 SL (01:46)
[2019-03-09 02:17] VITALS: BP 122/96
== END 2019-03-09 02:18 | disposition home or self-care (01) ==
LOC: EDUNIT# 23:54 → ER 23:56
DX: R10.13 Epigastric pain (principal); D64.9 Anemia, unspecified; F41.9 Anxiety disorder, unspecified; F32.9 Major depressive disorder, single episode, unspecified; Z90.49 Acquired absence of other specified parts of digestive tract
CPT/HCPCS: 36415; 80053; 81000; 83690; 84703; 85025

== ENCOUNTER → 2019-09-08 | Outpatient (CLI) | payer MEDICAID, OTHER ==
[~2019-09-08] MED LIST changes: +HYOS0.1283 SL; +ONDA4TAB11 SL
--- NOTE | 2019-09-08 14:38 | Diagnostic Imaging Report ---
PROCEDURE: US non-OB pelvis comp/trans. TECHNIQUE: Multiple real-time grayscale images were obtained of the pelvis in various projections endovaginally. Transabdominal imaging was also performed. INDICATION: Bloating and pelvic pain. FINDINGS: The uterus is anteverted measuring 7.4 x 3.5 x 4.2 cm. Endometrium is 3 mm in thickness. No myometrial mass is detected. Right ovary measures 2.0 x 1.5 x 2.5 cm, and the left ovary measures 2.2 x 1.6 x 2.4 cm. Ovaries contain small follicles. There is blood flow to both ovaries. No adnexal mass or free fluid is seen. IMPRESSION: Unremarkable pelvic ultrasound. Dictated by: Dictated on workstation # [id number]
== END ==
LOC: RAD 12:54
PROVIDERS: ATTEND Obstetrics & Gynecology
DX: R10.2 Pelvic and perineal pain (principal); R14.0 Abdominal distension (gaseous)
CPT/HCPCS: 76830; 76856